=== PATIENT | male | born 1945 | race Caucasian/White ===

== ENCOUNTER 2018-10-12 05:16 | Inpatient (IN) ==
--- NOTE | 2018-10-12 05:33 | ED ---
HPI General Chief complaint: GI Bleed Stated complaint: H/A since 11p,elevated BP,BRBPR Time Seen by Provider: 10/12/18 05:33 Source: patient Mode of arrival: ambulatory Limitations: no limitations History of Present Illness HPI Narrative: 73-year-old male presents to the emergency department for evaluation of red blood per rectum. Patient denies previous history of rectal bleeding. Patient notes that patient has past dark red blood without stool and not noted only with wiping with toilet paper. Patient also complains of abdominal pain with nausea no vomiting. No report of shortness of breath near syncope syncope or dizziness. Has experienced some weakness. Patient does take aspirin 81 mg does not report NSAID use. No report of frequent alcohol use or liver disease. No increased bruising. Takes no blood thinning agents other than aspirin. Patient has had no fever or chills. Patient denies any injury or trauma. Patient denies history of hemorrhoids. MD complaint: Reports gross hematochezia Onset (ago): day(s) (1) Pain Consistency: intermittent Severity: moderate Relieving factors: none Exacerbating factors: none Context: Reports history of GI bleed; Denies liver disease, hemorrhoids, swallowed FB, rectal trauma, alcohol abuse, known esophageal varices, medication /supplement use, foreign travel, unusual food, anticoagulant use and near syncope Associated symptoms: Reports abdominal pain, nausea and weakness; Denies vomiting, epistaxis, fever, chills, headaches, loss of appetite, malaise, easy bruising, rash, other bleeding, shortness of breath and syncope Treatments Prior to Arrival: Reports none Related Data Home Medications Medication Instructions Recorded Confirmed B-complex with vitamin C [Super B 2 tab PO DAILY 10/12/18 10/12/18 Complex-Vitamin C] Vitamin D3 25 mcg PO DAILY 10/12/18 10/12/18 aspirin [Aspir-Low] 81 mg PO DAILY 10/12/18 10/12/18 atorvastatin 10 mg PO DAILY 10/12/18 10/12/18 carboxymethylcellulose sodium 1 % LEFT EYE DAILY 10/12/18 10/12/18 [Refresh Liquigel] finasteride 5 mg PO DAILY 10/12/18 10/12/18 latanoprost 1 drp OPHTHALMIC (EYE) QPM 10/12/18 10/12/18 losartan 50 mg PO DAILY 10/12/18 10/12/18 tamsulosin 0.4 cap PO DAILY 10/12/18 10/12/18 venlafaxine 75 mg PO TID 10/12/18 10/12/18 Allergies Allergy/AdvReac Type Severity Reaction Status Date / Time No Known Allergies Allergy Verified 10/12/18 05:53 Review of Systems ROS: all other systems reviewed are negative PMFSH Medical History Medical History BPH (benign prostatic hyperplasia) (Acute) Depression (Acute) High cholesterol (Acute) Hypertension (Acute) Surgical History Surgical History History of vasectomy (Acute) Social History Social History Substance History: No History of Abuse Second Hand Smoke Exposure: Yes Smoking Status: Current every day smoker Tobacco Type: Cigarettes Cigarettes Per Day: 10 Years Smoked: 50 Pack-Years: 25.00 How Often Do You Have a Drink Containing Alcohol: Never Recent Travel in [facility] within the Last 8 Weeks: No Recent Out of Country Travel within the Last 8 Weeks: No Exam Narrative Exam Narrative: GENERAL: Well-nourished, well-developed patient. SKIN: Focused skin assessment warm/dry. HEAD: Normocephalic. EYES: No scleral icterus. No injection or drainage. NECK: Supple, trachea midline. No JVD or lymphadenopathy. CARDIOVASCULAR: Regular rate and rhythm without murmurs, gallops, or rubs. RESPIRATORY: Breath sounds equal bilaterally. No accessory muscle use. GASTROINTESTINAL: Abdomen soft, non-tender, nondistended. Rectal exam: Normal sphincter tone maroon stool/blood on exam glove; no palpable mass MUSCULOSKELETAL: No cyanosis, or edema. BACK: Nontender without obvious deformity. No CVA tenderness. Course Initial Documented Vital Signs Temperature 97.8 F 10/12/18 05:20 Pulse Rate 103 H 10/12/18 05:20 Respiratory Rate 18 10/12/18 05:20 Blood Pressure 137/90 10/12/18 05:20 Pulse Oximetry 96 10/12/18 05:20 Last Documented Vital Signs Temperature 98.4 F 10/19/18 00:00 Pulse Rate 67 10/19/18 04:00 Respiratory Rate 20 10/19/18 04:00 Blood Pressure 94/60 L 10/19/18 01:07 Pulse Oximetry 95 10/19/18 01:07 Medical Decision Making MDM Narrative Medical decision making narrative: Patient presents with dark red blood per rectum maroon colored is briskly Hemoccult positive IV access obtained specimens collected and sent for resulting patient given Protonix infusion. Patient identified to have hemoglobin 13 BUN and creatinine ratio less than 30 BUN is 19 with creatinine of 1.30. Patient has received Protonix and remains on Protonix infusion Patient's case discussed with medicine service for admission. [facility] MD for admission aware of CT abdomen pelvis pending. Medical Screen Exam Complete: Yes Emergency Medical Condition: Yes Differential Diagnosis Differential Diagnosis: Upper GI bleed lower GI bleed diverticulitis colitis anemia Medical Records Medical records reviewed: Yes I reviewed the patient's medical records. Lab Data Result diagrams: 10/16/18 06:50 10/12/18 06:00 Lab Results 10/12/18 10/12/18 10/12/18 Range/Units 06:00 06:00 06:00 CBC w Diff Auto diff final WBC 9.1 (4.0-11.0) th/mm3 RBC 4.95 (4.50-5.90) mil/mm3 Hgb 15.3 (13.0-17.0) gm/dL Hct 45.4 (39.0-51.0) % MCV 91.8 (80.0-100.0) fL MCH 30.9 (27.0-34.0) pg MCHC 33.6 (32.0-36.0) % RDW 13.1 (11.6-17.2) % Plt Count 239 (150-450) th/mm3 MPV 8.3 (7.0-11.0) fL Neut % (Auto) 71.8 H (16.0-70.0) % Lymph % (Auto) 18.9 (9.0-44.0) % [place] % (Auto) 6.0 (0.0-8.0) % Eos % (Auto) 1.4 (0.0-4.0) % Baso % (Auto) 1.9 (0.0-2.0) % Neut # (Auto) 6.6 (1.8-7.7) th/mm3 Lymph # (Auto) 1.7 (1.0-4.8) th/mm3 [place] # (Auto) 0.5 (0.0-0.9) th/mm3 Eos # (Auto) 0.1 (0.0-0.4) th/mm3 Baso # (Auto) 0.2 (0.0-0.2) th/mm3 WBC Differential . Differential Comment . PT 11.5 (9.8-11.6) sec INR 1.1 Ratio APTT 29.1 (23.4-31.7) sec Sodium 137 (136-145) meq/L Potassium 3.9 (3.5-5.1) meq/L Chloride 106 (98-107) meq/L Carbon Dioxide 24.6 (21.0-32.0) meq/L Anion Gap 6 (5-15) meq/L BUN 19 H (7-18) mg/dL Creatinine 1.30 (0.60-1.30) mg/dL Estimated GFR 54 L (>89) mL/min Random Glucose 119 H (74-106) mg/dL Calcium 8.6 (8.5-10.1) mg/dL Magnesium 2.2 (1.5-2.5) mg/dL Total Bilirubin 0.5 (0.2-1.0) mg/dL AST 18 (15-37) U/L ALT 17 (12-78) U/L Alkaline Phosphatase 45 (45-117) U/L Ammonia (11-32) mcmol/L Total Protein 7.1 (6.4-8.2) g/dL Albumin 3.8 (3.4-5.0) g/dL Blood Type Antibody Screen MTS Gel Crossmatch 10/12/18 10/12/18 10/12/18 Range/Units 06:00 06:00 14:34 CBC w Diff WBC (4.0-11.0) th/mm3 RBC (4.50-5.90) mil/mm3 Hgb 14.5 (13.0-17.0) gm/dL Hct 45.0 (39.0-51.0) % MCV (80.0-100.0) fL MCH (27.0-34.0) pg MCHC (32.0-36.0) % RDW (11.6-17.2) % Plt Count (150-450) th/mm3 MPV (7.0-11.0) fL Neut % (Auto) (16.0-70.0) % Lymph % (Auto) (9.0-44.0) % [place] % (Auto) (0.0-8.0) % Eos % (Auto) (0.0-4.0) % Baso % (Auto) (0.0-2.0) % Neut # (Auto) (1.8-7.7) th/mm3 Lymph # (Auto) (1.0-4.8) th/mm3 [place] # (Auto) (0.0-0.9) th/mm3 Eos # (Auto) (0.0-0.4) th/mm3 Baso # (Auto) (0.0-0.2) th/mm3 WBC Differential Differential Comment PT (9.8-11.6) sec INR Ratio APTT (23.4-31.7) sec Sodium (136-145) meq/L Potassium (3.5-5.1) meq/L Chloride (98-107) meq/L Carbon Dioxide (21.0-32.0) meq/L Anion Gap (5-15) meq/L BUN (7-18) mg/dL Creatinine (0.60-1.30) mg/dL Estimated GFR (>89) mL/min Random Glucose (74-106) mg/dL Calcium (8.5-10.1) mg/dL Magnesium (1.5-2.5) mg/dL Total Bilirubin (0.2-1.0) mg/dL AST (15-37) U/L ALT (12-78) U/L Alkaline Phosphatase (45-117) U/L Ammonia 10 L (11-32) mcmol/L Total Protein (6.4-8.2) g/dL Albumin (3.4-5.0) g/dL Blood Type A Positive Antibody Screen Negative MTS Gel Crossmatch 10/12/18 10/13/18 10/13/18 Range/Units 19:00 02:20 06:09 CBC w Diff WBC 7.6 (4.0-11.0) th/mm3 RBC 4.40 L (4.50-5.90) mil/mm3 Hgb 14.4 13.4 13.7 (13.0-17.0) gm/dL Hct 43.0 40.7 40.8 (39.0-51.0) % MCV 92.6 (80.0-100.0) fL MCH 31.1 (27.0-34.0) pg MCHC 33.6 (32.0-36.0) % RDW 13.7 (11.6-17.2) % Plt Count 201 (150-450) th/mm3 MPV 7.9 (7.0-11.0) fL Neut % (Auto) 65.9 (16.0-70.0) % Lymph % (Auto) 24.2 (9.0-44.0) % [place] % (Auto) 7.6 (0.0-8.0) % Eos % (Auto) 1.7 (0.0-4.0) % Baso % (Auto) 0.6 (0.0-2.0) % Neut # (Auto) 5.0 (1.8-7.7) th/mm3 Lymph # (Auto) 1.8 (1.0-4.8) th/mm3 [place] # (Auto) 0.6 (0.0-0.9) th/mm3 Eos # (Auto) 0.1 (0.0-0.4) th/mm3 Baso # (Auto) 0.0 (0.0-0.2) th/mm3 WBC Differential . Differential Comment Auto diff final PT (9.8-11.6) sec INR Ratio APTT (23.4-31.7) sec Sodium (136-145) meq/L Potassium (3.5-5.1) meq/L Chloride (98-107) meq/L Carbon Dioxide (21.0-32.0) meq/L Anion Gap (5-15) meq/L BUN (7-18) mg/dL Creatinine (0.60-1.30) mg/dL Estimated GFR (>89) mL/min Random Glucose (74-106) mg/dL Calcium (8.5-10.1) mg/dL Magnesium (1.5-2.5) mg/dL Total Bilirubin (0.2-1.0) mg/dL AST (15-37) U/L ALT (12-78) U/L Alkaline Phosphatase (45-117) U/L Ammonia (11-32) mcmol/L Total Protein (6.4-8.2) g/dL Albumin (3.4-5.0) g/dL Blood Type Antibody Screen MTS Gel Crossmatch 10/14/18 10/15/18 10/16/18 Range/Units 11:39 06:10 06:50 CBC w Diff WBC 8.1 8.1 7.9 (4.0-11.0) th/mm3 RBC 4.23 L 3.71 L 4.13 L (4.50-5.90) mil/mm3 Hgb 13.2 11.7 L 13.0 (13.0-17.0) gm/dL Hct 39.8 35.1 L 38.5 L (39.0-51.0) % MCV 94.0 94.5 93.2 (80.0-100.0) fL MCH 31.2 31.4 31.4 (27.0-34.0) pg MCHC 33.2 33.2 33.7 (32.0-36.0) % RDW 14.0 13.9 14.0 (11.6-17.2) % Plt Count 202 181 174 (150-450) th/mm3 MPV 8.1 8.8 8.6 (7.0-11.0) fL Neut % (Auto) 64.7 65.4 (16.0-70.0) % Lymph % (Auto) 25.5 24.1 (9.0-44.0) % [place] % (Auto) 8.1 H 7.9 (0.0-8.0) % Eos % (Auto) 1.2 2.1 (0.0-4.0) % Baso % (Auto) 0.5 0.5 (0.0-2.0) % Neut # (Auto) 5.3 5.2 (1.8-7.7) th/mm3 Lymph # (Auto) 2.1 1.9 (1.0-4.8) th/mm3 [place] # (Auto) 0.7 0.6 (0.0-0.9) th/mm3 Eos # (Auto) 0.1 0.2 (0.0-0.4) th/mm3 Baso # (Auto) 0.0 0.0 (0.0-0.2) th/mm3 WBC Differential . . Differential Comment Auto diff final Auto diff final PT (9.8-11.6) sec INR Ratio APTT (23.4-31.7) sec Sodium (136-145) meq/L Potassium (3.5-5.1) meq/L Chloride (98-107) meq/L Carbon Dioxide (21.0-32.0) meq/L Anion Gap (5-15) meq/L BUN (7-18) mg/dL Creatinine (0.60-1.30) mg/dL Estimated GFR (>89) mL/min Random Glucose (74-106) mg/dL Calcium (8.5-10.1) mg/dL Magnesium (1.5-2.5) mg/dL Total Bilirubin (0.2-1.0) mg/dL AST (15-37) U/L ALT (12-78) U/L Alkaline Phosphatase (45-117) U/L Ammonia (11-32) mcmol/L Total Protein (6.4-8.2) g/dL Albumin (3.4-5.0) g/dL Blood Type Antibody Screen MTS Gel Crossmatch 10/17/18 Range/Units 17:02 CBC w Diff WBC (4.0-11.0) th/mm3 RBC (4.50-5.90) mil/mm3 Hgb (13.0-17.0) gm/dL Hct (39.0-51.0) % MCV (80.0-100.0) fL MCH (27.0-34.0) pg MCHC (32.0-36.0) % RDW (11.6-17.2) % Plt Count (150-450) th/mm3 MPV (7.0-11.0) fL Neut % (Auto) (16.0-70.0) % Lymph % (Auto) (9.0-44.0) % [place] % (Auto) (0.0-8.0) % Eos % (Auto) (0.0-4.0) % Baso % (Auto) (0.0-2.0) % Neut # (Auto) (1.8-7.7) th/mm3 Lymph # (Auto) (1.0-4.8) th/mm3 [place] # (Auto) (0.0-0.9) th/mm3 Eos # (Auto) (0.0-0.4) th/mm3 Baso # (Auto) (0.0-0.2) th/mm3 WBC Differential Differential Comment PT (9.8-11.6) sec INR Ratio APTT (23.4-31.7) sec Sodium (136-145) meq/L Potassium (3.5-5.1) meq/L Chloride (98-107) meq/L Carbon Dioxide (21.0-32.0) meq/L Anion Gap (5-15) meq/L BUN (7-18) mg/dL Creatinine (0.60-1.30) mg/dL Estimated GFR (>89) mL/min Random Glucose (74-106) mg/dL Calcium (8.5-10.1) mg/dL Magnesium (1.5-2.5) mg/dL Total Bilirubin (0.2-1.0) mg/dL AST (15-37) U/L ALT (12-78) U/L Alkaline Phosphatase (45-117) U/L Ammonia (11-32) mcmol/L Total Protein (6.4-8.2) g/dL Albumin (3.4-5.0) g/dL Blood Type A Positive Antibody Screen Negative MTS Gel Crossmatch See Detail Imaging Data Radiologist's impression: Abdomen/Pelvis CT 10/12/18 06:16 CONCLUSION: 1. No acute finding is identified to explain the clinical symptoms. 2. 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 The aneurysms have increased in size, as above. 3. Nonacute findings include hepatic steatosis and stable small hiatal hernia. Aortography 10/18/18 00:00 CONCLUSION: Uncomplicated endograft placement for abdominal aortic aneurysm. Discharge Plan Discharge Disposition Patient Disposition: ED Admit(ED Internal Use Only) Discharge Condition Condition: Stable Discharge Order Discharge Orders: ED Use Only Admit Order (Routine); Ordered 10/12/18 Ordered By: Tammy Esquivel Discharge Details Diagnosis: GI bleed Physicians Team ED Provider: Tammy Esquivel Primary Care Provider: Abelardo Darden V Attending Provider: Arya Barton Other Providers: Maximiliano Verduzco V ; Klarissa Hobson ; [employer] Status ED Status: Left Department Discharge Information Discharge Date/Time: 10/12/18 09:00
[2018-10-12] MEDS ORDERED: Pantoprazole Inj 80 MG in Sodium Chlor 0.9% Inj 35 ML IV.SIG ONE (05:48)
[2018-10-12] MEDS ORDERED: Sodium Chlor 0.9% Inj 500 ML IV.SIG SCH (06:00)
[2018-10-12] MEDS ORDERED: Pantoprazole Inj 80 MG in Sodium Chlor 0.9% Inj 100 ML IV.CONT SCH (06:00)
[2018-10-12 06:08] LABS: Baso # (Auto) 0.2 th/mm3 (0.0-0.2); Baso % (Auto) 1.9 % (0.0-2.0); Eos # (Auto) 0.1 th/mm3 (0.0-0.4); Eos % (Auto) 1.4 % (0.0-4.0); Hematocrit 45.4 % (39.0-51.0); Hemoglobin 15.3 gm/dL (13.0-17.0); Lymph # (Auto) 1.7 th/mm3 (1.0-4.8); Lymph % (Auto) 18.9 % (9.0-44.0); Mean Corpuscular HGB Conc 33.6 % (32.0-36.0); Mean Corpuscular Hemoglobin 30.9 pg (27.0-34.0); Mean Corpuscular Volume 91.8 fL (80.0-100.0); Mean Platelet Volume 8.3 fL (7.0-11.0); Mono # (Auto) 0.5 th/mm3 (0.0-0.9); Neut # (Auto) 6.6 th/mm3 (1.8-7.7); Neut % (Auto) 71.8 % (16.0-70.0); Platelet Count 239 th/mm3 (150-450); Red Blood Count 4.95 mil/mm3 (4.50-5.90); Red Cell Distribution Width 13.1 % (11.6-17.2); White Blood Count 9.1 th/mm3 (4.0-11.0)
[2018-10-12 06:24] LABS: Chloride 106 meq/L (98-107); Potassium 3.9 meq/L (3.5-5.1); Sodium 137 meq/L (136-145)
[2018-10-12 06:28] LABS: Activated Partial Thrombo Time 29.1 sec (23.4-31.7); Albumin 3.8 g/dL (3.4-5.0); Anion Gap 6 meq/L (5-15); Blood Urea Nitrogen 19 mg/dL (7-18); Calcium 8.6 mg/dL (8.5-10.1); Carbon Dioxide 24.6 meq/L (21.0-32.0); Glucose,Random 119 mg/dL (74-106); INR 1.1 Ratio; Magnesium 2.2 mg/dL (1.5-2.5); Prothrombin Time 11.5 sec (9.8-11.6)
[2018-10-12 06:31] LABS: Alanine Aminotransferase 17 U/L (12-78); Aspartate Aminotransferase 18 U/L (15-37); Glomerular Filtration Rate 54 mL/min (>89)
[2018-10-12 06:33] LABS: Total Protein 7.1 g/dL (6.4-8.2)
[2018-10-12 06:34] LABS: Alkaline Phosphatase 45 U/L (45-117)
[2018-10-12] MEDS: Sod Chloride 0.9% Inj 1,000 ML IV.CONT SCH ×2 (06:35→14:30)
[2018-10-12] MEDS ORDERED: Acetaminophen 325 MG Tablet PO PRN (06:53)
[2018-10-12] MEDS ORDERED: Bisacodyl 10 MG Supp RECTAL PRN (06:53)
--- NOTE | 2018-10-12 07:17 | CT ---
EXAM DATE: 10/12/2018 7:03 AM EST AGE/SEX: 73 years / Male INDICATIONS: Blood in stool. Left lower quadrant abdominal pain. CLINICAL DATA: This is the patient's initial encounter. Patient reports that signs and symptoms have been present for 1 day and indicates a pain score of 3/10. MEDICAL/SURGICAL HISTORY: Hypertension. None. ORAL CONTRAST: No oral contrast ingested. RADIATION DOSE: 20.88 CTDI (mGy) COMPARISON: [facility], CT ABDOMEN & PELVIS W CONTRAST, 03/18/2015. . TECHNIQUE: Multiple contiguous axial images were obtained through the abdomen and pelvis following b olus infusion of 100 ml Omnipaque 350 (iohexol) nonionic water-soluble contrast as a single exam do se. No oral contrast ingested. Using automated exposure control and adjustment of the mA and/or kV a ccording to patient size, radiation dose was kept as low as reasonably achievable to obtain optimal d iagnostic quality images. DICOM format image data is available electronically for review and compari son. FINDINGS: Lower chest: There is a calcified granuloma in the left lung base. No acute abnormality is present. Hepatobiliary: Liver appearance indicates steatosis. No focal liver lesion is identified but there is fat sparing within segment 4. No calcified gallstones are present. Kidneys: No hydronephrosis, stone, or mass. There is an incidental 8 mm low-density lesion in the rig ht mid kidney that is too small to characterize. Adrenal Glands: Within normal limits. Spleen: Within normal limits. Pancreas: Within normal limits. Vascular: There is severe atherosclerotic disease. The distal descending thoracic aorta is tortuous a nd aneurysmal measuring up to 4.1 cm, compared to 3.2 cm previously. The abdominal aorta is ectatic a nd aneurysmal with the largest aneurysmal segment in the infrarenal aspect at the level of the AUTUMN or igin measuring up to 5.0 x 4.1 cm compared to 3.7 x 3.5 cm previously. 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 Bowel/Mesentery: The stomach and small bowel demonstrate no acute abnormality. There is a stable smal l hiatal hernia. No acute colon abnormality is seen. There is no free intraperitoneal air or fluid. A ppendix and terminal ileum have a normal appearance. There is sigmoid diverticulosis. Abdominal Wall: No hernia is visualized. Retroperitoneum: No lymphadenopathy. Bladder: No wall thickening or mass. Reproductive: Within normal limits. Inguinal: No lymphadenopathy or hernia. Musculoskeletal: No acute osseous abnormality is identified. There is multilevel degenerative disc di sease in the lumbar spine. CONCLUSION: 1. No acute finding is identified to explain the clinical symptoms. 2. 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 The aneurysms have increased in size, as above. 3. Nonacute findings include hepatic steatosis and stable small hiatal hernia. Electronically signed by: Qamar Evans MD Board Certified Radiologist 10/12/2018 7:16 AM EST
[2018-10-12] MEDS: Pantoprazole Inj 80 MG in Sodium Chlor 0.9% Inj 100 ML IV.CONT SCH ×2 (08:05→16:53)
--- NOTE | 2018-10-12 13:35 | P.HPIM ---
History of Present Illness Primary Care Physician: Abelardo Darden MD Chief Complaint: Blood in stool History of Present Illness: 73-year-old male with known history of hypertension, hyperlipidemia, history of GI bleed, benign prostatic hypertrophy who presented to the hospital for evaluation of bloody stool. Patient states that his normal state of health until yesterday when he had a bowel movement noticed right red blood in his stool. He denies any drops in the toilet or any dark colored stool. He states that he had 4 more episodes throughout the day so he came to the hospital for evaluation. Patient had workup done in the emergency department his hemoglobin was found to be 15.3. Because of his presenting symptoms it was recommended by the ER physician the patient be observed in the hospital for further evaluation and management. Patient indicates that he was in the hospital previously for the same symptoms. Reviewed medical records and patient was in here on 2014 in which he did undergo endoscopy/colonoscopy by Dr. Scott, at that time patient was found to have polyps in the transverse colon as well as diverticulosis. Patient was discharged after that, patient states that he not had any outpatient follow-up since then. Patient denies any other symptoms to include abdominal pain, nausea , vomiting, dark colored stool, fever, chills. Review of Systems Review of Systems: all other systems reviewed are negative Gastrointestinal: Reports hematochezia [facility] Medical History Medical History BPH (benign prostatic hyperplasia) (Acute) Depression (Acute) High cholesterol (Acute) Hypertension (Acute) Surgical History Surgical History History of vasectomy (Acute) Social History Social History Substance History: No History of Abuse Second Hand Smoke Exposure: No Smoking Status: Current every day smoker Tobacco Type: Cigarettes Cigarettes Per Day: 10 Years Smoked: 50 Pack-Years: 25.00 How Often Do You Have a Drink Containing Alcohol: Monthly or less Recent Travel in [facility] within the Last 8 Weeks: No Recent Out of Country Travel within the Last 8 Weeks: No Immunization History Tetanus Immunization: Unsure Medications and Allergies Allergies Allergy/AdvReac Type Severity Reaction Status Date / Time No Known Allergies Allergy Verified 10/12/18 05:53 Home Medications Medication Instructions Recorded Confirmed Type B-complex with vitamin C [Super B 2 tab PO DAILY 10/12/18 10/12/18 History Complex-Vitamin C] Vitamin D3 25 mcg PO DAILY 10/12/18 10/12/18 History aspirin [Aspir-Low] 81 mg PO DAILY 10/12/18 10/12/18 History atorvastatin 10 mg PO DAILY 10/12/18 10/12/18 History carboxymethylcellulose sodium 1 % LEFT EYE DAILY 10/12/18 10/12/18 History [Refresh Liquigel] finasteride 5 mg PO DAILY 10/12/18 10/12/18 History latanoprost 1 drp OPHTHALMIC (EYE) QPM 10/12/18 10/12/18 History losartan 50 mg PO DAILY 10/12/18 10/12/18 History tamsulosin 0.4 cap PO DAILY 10/12/18 10/12/18 History venlafaxine 75 mg PO TID 10/12/18 10/12/18 History Active Medications: Active Medications Acetaminophen (Tylenol) 650 mg PO Q4H PRN PRN Reason: Temp > 100.4 Al Hydroxide/Mg Hydroxide (Milk Of Magnesia Liq) 30 ml PO Q12H PRN PRN Reason: Mild Constipation Bisacodyl (Dulcolax Supp) 10 mg RECTAL DAILY PRN PRN Reason: SEVERE CONSITIPATION Sodium Chloride (Ns Inj) 1,000 mls @ 125 mls/hr IV.CONT .Q8H [facility] Last Admin: 10/12/18 06:35 Dose: 125 mls/hr Pantoprazole Sodium 80 mg/ (Sodium Chloride) 100 mls @ 10 mls/hr IV.CONT Q10H [facility] Last Admin: 10/12/18 08:05 Dose: 10 mls/hr Lactulose (Lactulose Liq) 30 ml PO DAILY PRN PRN Reason: SEVERE CONSITIPATION Ondansetron HCl (Zofran Inj) 4 mg IV.PUSH Q6H PRN PRN Reason: NAUSEA OR VOMITING Sennosides (Senokot) 17.2 mg PO Q12H PRN PRN Reason: Moderate Constipation Sodium Chloride (Ns Flush) 2 ml IV.FLUSH PRN PRN PRN Reason: FLUSH AFTER USING IV ACCESS Sodium Chloride (Ns Flush) 2 ml IV.FLUSH BID [facility] Last Admin: 10/12/18 09:20 Dose: Not Given Sodium Chloride (Ns Flush) 2 ml IV.FLUSH PRN PRN PRN Reason: FLUSH AFTER USING IV ACCESS Physical Exam Vital signs: Last Vital Signs Temp 97.2 F L 10/12/18 10:05 Pulse 88 10/12/18 10:05 Resp 16 10/12/18 10:05 BP 157/86 H 10/12/18 10:05 Pulse Ox 96 10/12/18 10:05 Intake & Output 10/10/18 10/11/18 10/12/18 10/13/18 06:59 06:59 06:59 06:59 Intake Total 535 / 535 Balance 535 / 535 Weight 102.7 kg 99.9 kg Narrative: GENERAL: Well-developed, well-nourished, in no acute distress. alert and orientated HEENT: Head is normocephalic without any lesions or masses noted. Facial features are symmetric. Eyes: Pupils equal round reactive to light. Extraocular muscles are intact. Conjunctivae were clear. Oropharyngeal: Pharynx without any erythema edema. Tongue is midline without deviation. Buccal mucosa is moist without any masses or lesions NECK: Supple without any masses. Trachea midline no deviation. No JVD, no bruits are appreciated CARDIAC: Regular rhythm, regular rate. S1/S2 are heard. No murmurs gallops or rubs. LUNGS: Clear to auscultation bilaterally. No wheeze, rhonchi or rales. No use of accessory muscles on inspiration or expiration. ABDOMEN: Soft, nontender. Nondistended. Bowel sounds heard in all 4 quadrants. No organomegaly or masses. Negative rebound, negative guarding EXTREMITIES: No edema, pulses are equal bilaterally. No cyanosis or clubbing NEUROLOGY: Mood and affect appear appropriate. Cranial nerves II through XII grossly intact. Muscle strength 5/5 in upper and lower extremities bilaterally. Deep tendon reflexes are 2+ in upper and lower extremities bilaterally. Results Labs CBC & Chem 7: 10/12/18 14:34 10/12/18 06:00 Imaging Impressions Abdomen/Pelvis CT 10/12/18 06:16 CONCLUSION: 1. No acute finding is identified to explain the clinical symptoms. 2. 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 The aneurysms have increased in size, as above. 3. Nonacute findings include hepatic steatosis and stable small hiatal hernia. Caprini VTE Risk Assessment Caprini VTE Risk Assessment: Moderate/High Risk (score >= 2) Caprini Risk Assessment Model: Point Value = 1 Point Value = 2 Point Value = 3 Point Value = 5 Age 41-60 Minor surgery BMI > 25 kg/m2 Swollen legs Varicose veins or History of unexplained or recurrent spontaneous Oral contraceptives or hormone replacement Sepsis (< 1 month) Serious lung disease, including pneumonia (< 1 month) Abnormal pulmonary function Acute myocardial infarction Congestive heart failure (< 1 month) History of inflammatory bowel disease Medical patient at bed rest Age 61-74 Arthroscopic surgery Major open surgery (> 45 min) Laparoscopic surgery (> 45 min) Malignancy Confined to bed (> 72 hours) Immobilizing plaster cast Central venous access Age >= 75 History of VTE Family history of VTE Factor V Leiden Prothrombin [id number] Lupus anticoagulant Anticardiolipin antibodies Elevated serum homocysteine Heparin-induced thrombocytopenia Other congenital or acquired thrombophilia Stroke (< 1 month) Elective arthroplasty Hip, pelvis, or leg fracture Acute spinal cord injury (< 1 month) Prophylaxis Regimen: Total Risk Factor Score Risk Level Prophylaxis Regimen 0-1 Low Early ambulation 2 Moderate Order ONE of the following: *Sequential Compression Device (SCD) *Heparin 5000 units SQ BID 3-4 Higher Order ONE of the following medications: *Heparin 5000 units SQ TID *Enoxaparin/Lovenox 40 mg SQ daily (WT < 150 kg, CrCl > 30 mL/min) *Enoxaparin/Lovenox 30 mg SQ daily (WT < 150 kg, CrCl > 10-29 mL/min) *Enoxaparin/Lovenox 30 mg SQ BID (WT < 150 kg, CrCl > 30 mL/min) AND/OR *Sequential Compression Device (SCD) 5 or more Highest Order ONE of the following medications: *Heparin 5000 units SQ TID (Preferred with Epidurals) *Enoxaparin/Lovenox 40 mg SQ daily (WT < 150 kg, CrCl > 30 mL/min) *Enoxaparin/Lovenox 30 mg SQ daily (WT < 150 kg, CrCl > 10-29 mL/min) *Enoxaparin/Lovenox 30 mg SQ BID (WT < 150 kg, CrCl > 30 mL/min) AND *Sequential Compression Device (SCD) Assessment and Plan Plan Hematochezia Patient presented with 1 day history of 4 episodes of hematochezia Patient does have history of colonoscopy done 3 years ago with transverse colon polyps and diverticulosis. Both of which could be a reason for his hematochezia Initially patient hemoglobin 15.3, continue monitor hemoglobin hematocrit every 6 hours Transfuse if hemoglobin below 8.0 We will maintain patient with a clear liquid diet at this time, n.p.o. at midnight GI consulted for further recommendations. Patient will likely need at least colonoscopy. Will defer colon prep to GI physician Continue Protonix IV Abdominal aneurysms, increasing in size Consult cardiovascular surgery for recommendations Patient will require clearance in order to pursue any endoscopy procedures Hypertension, hyperlipidemia, benign prostatic hypertrophy Continue home medications We will hold daily aspirin at this time DVT prevention Sequential compression devices Avoid chemical prophylaxis secondary to hematochezia H&P: Quality VTE Deep Vein Thrombosis/Pulmonary Embolism Present on Admission: No
[2018-10-12] MEDS: Venlafaxine XR 75 MG Capsule PO SCH (14:31)
[2018-10-12 14:46] LABS: Hemoglobin 14.5 gm/dL (13.0-17.0)
--- NOTE | 2018-10-12 17:36 | MB ---
cc: Irwin Guillory MD, Kashya Duncan, Jeffrey D MD Zulfiqar, Hassan MD DATE: 10/12/2018 This is a patient of Dr. Uriel Stack. REASON FOR CONSULTATION: Rectal bleeding. HISTORY OF PRESENT ILLNESS: Mr. English is a 73-year-old gentleman with 1-day history of painless rectal bleeding. He says he had 4 bloody bowel movements yesterday, and so far today, he has had additional 4 bowel movements. His hemoglobin has dropped from 15.3 to 14.5. On presentation, he had a CT scan of the abdomen and pelvis done, which shows that he has a descending thoracic aorta aneurysm, which has increased from 3.2 cm to 4.1 cm, and then he has an infrarenal aortic aneurysm which has increased from 3.7 to 5.0 cm. The patient states that he has these followed at the [facility]. Last ultrasound was about 6 months ago through the [place] system. He is having minimal left lower quadrant discomfort. Otherwise, no symptoms. REVIEW OF SYSTEMS: Hematochezia with minimal left lower quadrant discomfort. No nausea, vomiting. No weight loss. PAST MEDICAL HISTORY: Benign prostatic hypertrophy, aortic aneurysm, depression, elevated cholesterol, elevated blood pressure. PAST SURGICAL HISTORY: Vasectomy, EGD and colonoscopy in 2015 which revealed colon polyps as well as diverticulosis. SOCIAL HISTORY: The patient is a smoker, 10 cigarettes daily. No alcohol use reported consistently. MEDICINES ON ADMISSION: 1. B complex. 2. Aspirin. 3. Atorvastatin. 4. Finasteride. 5. Losartan. 6. Tamsulosin. 7. Venlafaxine. PHYSICAL EXAMINATION: GENERAL: Well-nourished man in no apparent distress. VITAL SIGNS: Stable. HEAD AND NECK: Anicteric sclerae. LUNGS: Bilateral air entry with rales. ABDOMEN: Soft and minimal tenderness in the left lower quadrant. Bowel sounds are present. CENTRAL NERVOUS SYSTEM: Nonfocal. RECTAL: Deferred at this time. LABORATORY DATA: Hemoglobin of 14.5, INR is 1.1. Creatinine 1.30. CT of the abdomen and pelvis findings as mentioned above. IMPRESSION: Gastrointestinal bleeding, possible diverticular bleed. RECOMMENDATIONS: Currently, the patient's hemoglobin is stable. Ideally, we would scope him tomorrow and prep him today, but the patient's aneurysm has increased in size by about 2 cm. I am concerned about this and would recommend transfer to the [facility] and cardiothoracic evaluation as soon as possible. Once the patient is cleared from their standpoint, we can proceed with an emergent EGD and colonoscopy. The patient needs to be typed and screened for 2 units of blood. Clear liquid diet at this time. These findings have been discussed with the patient's primary care physician, Dr. Uriel Stack, as well. Dr. Rivero will follow at the [facility]. MD ONUR Guardado/shravan , 04:41 PM , 04:49 PM
--- NOTE | 2018-10-12 18:53 | P.PNVS ---
Subjective Subjective/Hospital Course: 73-year-old male with lower GI bleed most likely diverticular in nature. CT of abdomen and pelvis reveals abdominal aortic aneurysm which has grown since the last exam few years ago At this point patient has a 5.2 cm saccular abdominal aortic aneurysm and infrarenal aorta. Saccular aneurysms are notorious for rupture and have usually a fairly thin wall. Therefore this patient needs to be transferred to [facility], be worked up for GI bleed and depending on those findings either undergo endovascular abdominal aortic aneurysm repair at this admission or in the near future. It should be noted that patient will need to be heparinized for endovascular stenting so unless the bleeding is controlled we can do that. On the other hand I would be hard pressed to wait too long on this aneurysm because risk of ruptured here is fairly high considering the morphology of this lesion. Full consult to follow Thanks J Objective Vital Signs / I&O: Vital Signs 10/12/18 05:20 10/12/18 06:00 10/12/18 08:10 Temperature 97.8 F Pulse Rate 103 H 91 H Respiratory Rate 18 16 Blood Pressure 137/90 144/94 H Pulse Oximetry 96 96 97 10/12/18 09:00 10/12/18 10:05 10/12/18 14:41 Temperature 97.2 F L 97.2 F L Pulse Rate 88 85 Respiratory Rate 16 16 Blood Pressure 157/86 H 133/84 Pulse Oximetry 96 96 96 10/12/18 18:48 Temperature 98.4 F Pulse Rate 93 H Respiratory Rate 20 Blood Pressure 140/87 Pulse Oximetry 95 Intake & Output 10/11/18 10/12/18 10/12/18 18:59 06:59 18:59 Intake Total 535 / 535 100 / 100 Output Total 300 / 300 Balance 535 / 535 -200 / -200 Weight 102.7 kg 99.9 kg Intake: IV 535 / 535 100 / 100 Protonix Inj 80 MG In NS Inj 100 / 100 100 ML @ 10 mls/hr IV.CONT Q10H [facility] Rx#:[id number] NS Inj 1,000 ML @ 125 mls/hr IV 0 / 0 .CONT .Q8H [facility] Rx#:[id number] Protonix Inj 80 MG In NS Inj 35 35 / 35 ML @ 420 mls/hr IV.SIG BOLUS ONE Rx#:[id number] NS Inj 500 ML @ 1000 mls/hr IV. 500 / 500 SIG BOLUS [facility]OT[facility] Rx#:[id number] Output: Stool 300 / 300 Other: Date of Last Bowel Movement 10/12/18 Weight On Admission 99.9 kg Laboratory Results - last 24 hr 10/12/18 10/12/18 10/12/18 06:00 06:00 06:00 CBC w Diff Auto diff final WBC 9.1 RBC 4.95 Hgb 15.3 Hct 45.4 MCV 91.8 MCH 30.9 MCHC 33.6 RDW 13.1 Plt Count 239 MPV 8.3 Neut % (Auto) 71.8 H Lymph % (Auto) 18.9 Ellis % (Auto) 6.0 Eos % (Auto) 1.4 Baso % (Auto) 1.9 Neut # (Auto) 6.6 Lymph # (Auto) 1.7 Ellis # (Auto) 0.5 Eos # (Auto) 0.1 Baso # (Auto) 0.2 WBC Differential . Differential Comment . PT 11.5 INR 1.1 APTT 29.1 Sodium 137 Potassium 3.9 Chloride 106 Carbon Dioxide 24.6 Anion Gap 6 BUN 19 H Creatinine 1.30 Estimated GFR 54 L Random Glucose 119 H Calcium 8.6 Magnesium 2.2 Total Bilirubin 0.5 AST 18 ALT 17 Alkaline Phosphatase 45 Ammonia Total Protein 7.1 Albumin 3.8 Blood Type Antibody Screen 10/12/18 10/12/18 10/12/18 06:00 06:00 14:34 CBC w Diff WBC RBC Hgb 14.5 Hct 45.0 MCV MCH MCHC RDW Plt Count MPV Neut % (Auto) Lymph % (Auto) Ellis % (Auto) Eos % (Auto) Baso % (Auto) Neut # (Auto) Lymph # (Auto) Ellis # (Auto) Eos # (Auto) Baso # (Auto) WBC Differential Differential Comment PT INR APTT Sodium Potassium Chloride Carbon Dioxide Anion Gap BUN Creatinine Estimated GFR Random Glucose Calcium Magnesium Total Bilirubin AST ALT Alkaline Phosphatase Ammonia 10 L Total Protein Albumin Blood Type A Positive Antibody Screen Negative Impressions Abdomen/Pelvis CT 10/12/18 06:16 CONCLUSION: 1. No acute finding is identified to explain the clinical symptoms. 2. 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 The aneurysms have increased in size, as above. 3. Nonacute findings include hepatic steatosis and stable small hiatal hernia.
[2018-10-12 19:37] LABS: Hemoglobin 14.4 gm/dL (13.0-17.0)
[2018-10-13 02:41] LABS: Hematocrit 40.7 % (39.0-51.0); Hemoglobin 13.4 gm/dL (13.0-17.0)
[2018-10-13] MEDS: Sod Chloride 0.9% Inj 1,000 ML IV.CONT SCH ×3 (04:17→14:00)
[2018-10-13] MEDS: Pantoprazole Inj 80 MG in Sodium Chlor 0.9% Inj 100 ML IV.CONT SCH ×2 (04:17→14:32)
[2018-10-13 06:21] LABS: Baso % (Auto) 0.6 % (0.0-2.0); Eos # (Auto) 0.1 th/mm3 (0.0-0.4); Eos % (Auto) 1.7 % (0.0-4.0); Hematocrit 40.8 % (39.0-51.0); Hemoglobin 13.7 gm/dL (13.0-17.0); Lymph # (Auto) 1.8 th/mm3 (1.0-4.8); Lymph % (Auto) 24.2 % (9.0-44.0); Mean Corpuscular HGB Conc 33.6 % (32.0-36.0); Mean Corpuscular Hemoglobin 31.1 pg (27.0-34.0); Mean Corpuscular Volume 92.6 fL (80.0-100.0); Mean Platelet Volume 7.9 fL (7.0-11.0); Mono # (Auto) 0.6 th/mm3 (0.0-0.9); Mono % (Auto) 7.6 % (0.0-8.0); Neut % (Auto) 65.9 % (16.0-70.0); Platelet Count 201 th/mm3 (150-450); Red Cell Distribution Width 13.7 % (11.6-17.2); White Blood Count 7.6 th/mm3 (4.0-11.0)
[2018-10-13] MEDS: Finasteride 5 MG Tablet PO SCH (08:35)
[2018-10-13] MEDS: Venlafaxine XR 75 MG Capsule PO SCH (08:35)
[2018-10-13] MEDS: Metoprolol Tartrate 50 MG Tablet PO SCH ×2 (13:47→20:20)
--- NOTE | 2018-10-13 14:37 | P.PNVS ---
Subjective Subjective/Hospital Course: 73-year-old male with lower GI bleed most likely diverticular in nature. CT of abdomen and pelvis reveals abdominal aortic aneurysm which has grown since the last exam few years ago At this point patient has a 5.2 cm saccular abdominal aortic aneurysm and infrarenal aorta. Saccular aneurysms are notorious for rupture and have usually a fairly thin wall. Therefore this patient needs to be transferred to [facility], be worked up for GI bleed and depending on those findings either undergo endovascular abdominal aortic aneurysm repair at this admission or in the near future. It should be noted that patient will need to be heparinized for endovascular stenting so unless the bleeding is controlled we can do that. On the other hand I would be hard pressed to wait too long on this aneurysm because risk of ruptured here is fairly high considering the morphology of this lesion. Full consult to follow Thanks J 10/13/2018 Patient cleared from vascular point and needs scope, followed by endovascular AAA repair at this admission. Full consult has been dictated Spoke to Dr. Stevenson and we will engage GI Objective Vital Signs / I&O: Vital Signs 10/12/18 14:41 10/12/18 18:48 10/12/18 20:00 Temperature 97.2 F L 98.4 F 97.8 F Pulse Rate 85 93 H 90 Respiratory Rate 16 20 20 Blood Pressure 133/84 140/87 143/87 H Pulse Oximetry 96 95 94 L 10/13/18 00:00 10/13/18 05:54 10/13/18 07:46 Temperature 97.1 F L 98.5 F 97.7 F Pulse Rate 94 H 89 85 Respiratory Rate 20 20 20 Blood Pressure 132/88 129/59 L 150/88 H Pulse Oximetry 94 L 96 95 10/13/18 11:52 Temperature 98.0 F Pulse Rate 82 Respiratory Rate 18 Blood Pressure 148/86 H Pulse Oximetry 96 Intake & Output 10/12/18 10/13/18 10/13/18 18:59 06:59 18:59 Intake Total 100 / 100 1100 / 1100 100 / 100 Output Total 300 / 300 Balance -200 / -200 1100 / 1100 100 / 100 Weight 99.9 kg 104.6 kg Intake: IV 100 / 100 1100 / 1100 100 / 100 Protonix Inj 80 MG In NS Inj 100 / 100 100 / 100 100 / 100 100 ML @ 10 mls/hr IV.CONT Q10H [facility] Rx#:[id number] NS Inj 1,000 ML @ 125 mls/hr IV 0 / 0 1000 / 1000 .CONT .Q8H [facility] Rx#:[id number] Output: Stool 300 / 300 Other: # Voids 1 Date of Last Bowel Movement 10/12/18 10/13/18 10/13/18 # Bowel Movements 1 Weight On Admission 99.9 kg Laboratory Results - last 24 hr 10/12/18 10/12/18 10/13/18 14:34 19:00 02:20 WBC RBC Hgb 14.5 14.4 13.4 Hct 45.0 43.0 40.7 MCV MCH MCHC RDW Plt Count MPV Neut % (Auto) Lymph % (Auto) [place] % (Auto) Eos % (Auto) Baso % (Auto) Neut # (Auto) Lymph # (Auto) [place] # (Auto) Eos # (Auto) Baso # (Auto) WBC Differential Differential Comment 10/13/18 06:09 WBC 7.6 RBC 4.40 L Hgb 13.7 Hct 40.8 MCV 92.6 MCH 31.1 MCHC 33.6 RDW 13.7 Plt Count 201 MPV 7.9 Neut % (Auto) 65.9 Lymph % (Auto) 24.2 [place] % (Auto) 7.6 Eos % (Auto) 1.7 Baso % (Auto) 0.6 Neut # (Auto) 5.0 Lymph # (Auto) 1.8 [place] # (Auto) 0.6 Eos # (Auto) 0.1 Baso # (Auto) 0.0 WBC Differential . Differential Comment Auto diff final Impressions Abdomen/Pelvis CT 10/12/18 06:16 CONCLUSION: 1. No acute finding is identified to explain the clinical symptoms. 2. 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 The aneurysms have increased in size, as above. 3. Nonacute findings include hepatic steatosis and stable small hiatal hernia.
--- NOTE | 2018-10-13 15:21 | MB ---
cc: Klarissa Hobson MD DATE: 10/12/2018 REASON FOR CONSULTATION: Abdominal aortic aneurysm. HISTORY OF PRESENT DISEASE: This pleasant 73-year-old gentleman with a medical history of GI bleed in the past and various other issues presents to the hospital with maroon-colored and bloody stool. The patient refers the stool as dark colored and then became more bright red. The patient was admitted to [facility] and in the workup found to have a 5.2 cm saccular abdominal aortic aneurysm in the infrarenal position. Patient apparently in the past had a CT which showed a smaller size aneurysm; hence the consultation. PAST MEDICAL HISTORY: Hypertension, hyperlipidemia, BPH, and a known abdominal aortic aneurysm about 3.2 cm at the last evaluation. The patient also had apparently previous bleed and is known to have diverticulosis. SOCIAL HISTORY: The patient smokes about half-pack a day, smoked for 50 years. Drinks very rarely. MEDICATIONS: Can be found in the records. PHYSICAL EXAMINATION: GENERAL: Reveals a 73-year-old gentleman; awake, alert, oriented, normocephalic. No trauma to the head. Pupils are equal and reactive. Extraocular muscles intact. NECK: Bilateral carotid pulses. No bruits. CHEST: Bilateral breath sounds. HEART: Regular rate and rhythm. No murmurs. ABDOMEN: Soft. No rebound, no guarding, no masses. No abdominal tenderness noted in either left or right lower quadrant. BACK: Normal. EXTREMITIES: The patient has proximal and distal are normal pulses. No vascular deficit. IMPRESSION AND RECOMMENDATIONS: This patient most likely has a diverticular bleed and he will require endoscopy for the same. Depending on that, we will have to decide which way to go with the abdominal aortic aneurysm. Considering the rapid growth of this and saccular nature, these are very prone to rupture early and the wall was quite thin. Therefore, I recommend endovascular repair at this admission. The caveat is that for the repair, the patient needs to be heparinized, so with active bleed, he might need embolization of some of the mesenteric branches to start with. On the other hand, if the bleeding has stopped, then no need for the same and we can proceed with aneurysm repair. The patient at this point is cleared for scope from a cardiovascular point and based on the scope findings, we will decide further care. Thank you very much for referral. MD Beatris Lopez , 02:41 PM , 02:49 PM
--- NOTE | 2018-10-13 17:43 | P.PNGI ---
Subjective Interval history: Patient laying supine in bed Bedside RN reports patient having dark brown to black tarry loose stools <Light,Kaylee - Last Filed: 10/13/18 17:34> Physical Exam Vital signs: Vital Signs 10/12/18 18:48 10/12/18 20:00 10/13/18 00:00 Temperature 98.4 F 97.8 F 97.1 F L Pulse Rate 93 H 90 94 H Respiratory Rate 20 20 20 Blood Pressure 140/87 143/87 H 132/88 Pulse Oximetry 95 94 L 94 L 10/13/18 05:54 10/13/18 07:46 10/13/18 11:52 Temperature 98.5 F 97.7 F 98.0 F Pulse Rate 89 85 82 Respiratory Rate 20 20 18 Blood Pressure 129/59 L 150/88 H 148/86 H Pulse Oximetry 96 95 96 10/13/18 16:00 Temperature 98.5 F Pulse Rate 82 Respiratory Rate 20 Blood Pressure 140/85 Pulse Oximetry 95 Intake & Output 10/12/18 10/13/18 10/13/18 18:59 06:59 18:59 Intake Total 100 / 100 1100 / 1100 100 / 100 Output Total 300 / 300 Balance -200 / -200 1100 / 1100 100 / 100 Weight 99.9 kg 104.6 kg Intake: IV 100 / 100 1100 / 1100 100 / 100 Protonix Inj 80 MG In NS Inj 100 / 100 100 / 100 100 / 100 100 ML @ 10 mls/hr IV.CONT Q10H PIOTR Rx#:[id number] NS Inj 1,000 ML @ 125 mls/hr IV 0 / 0 1000 / 1000 .CONT .Q8H PIOTR Rx#:[id number] Output: Stool 300 / 300 Other: # Voids 1 Date of Last Bowel Movement 10/12/18 10/13/18 10/13/18 # Bowel Movements 1 Weight On Admission 99.9 kg - Constitutional no acute distress - Routine HEENT Exam Head: Present: normocephalic - Routine Respiratory Exam Present: CTA bilaterally. Absent: accessory muscle use - Routine Cardiovascular Exam Present: RRR, S1, S2 - Routine Abdominal Exam Present: soft, normoactive bowel sounds. Absent: distended, guarding, firm - Routine Extremities Exam Present: pulses intact. Absent: edema - Routine Skin Exam Present: dry, warm. Absent: pallor - Routine Neurological Exam Present: alert, oriented X3 <Kaylee Light - Last Filed: 10/13/18 17:34> Vital signs: Vital Signs 10/15/18 16:00 10/15/18 20:00 10/16/18 00:00 Temperature 96.6 F L 98.2 F 98.6 F Pulse Rate 70 64 83 Respiratory Rate 14 20 18 Blood Pressure 142/87 H 149/87 H 132/89 Pulse Oximetry 98 97 96 10/16/18 03:45 10/16/18 04:00 10/16/18 07:30 Temperature 98.1 F 98.5 F Pulse Rate 65 62 64 Respiratory Rate 18 20 Blood Pressure 131/84 119/78 Pulse Oximetry 96 95 10/16/18 08:00 10/16/18 08:12 10/16/18 11:00 Temperature 97.5 F L Pulse Rate 78 68 Respiratory Rate 20 Blood Pressure 127/80 Pulse Oximetry 95 98 Intake & Output 10/15/18 10/16/18 10/16/18 18:59 06:59 18:59 Intake Total 1000 / 1000 1100 / 1100 1000 / 1000 Balance 1000 / 1000 1100 / 1100 1000 / 1000 Weight 103.8 kg Intake: IV 1000 / 1000 1100 / 1100 1000 / 1000 Protonix Inj 80 MG In NS Inj 100 / 100 100 ML @ 10 mls/hr IV.CONT Q10H IPOTR Rx#:[id number] NS Inj 1,000 ML @ 125 mls/hr IV 1000 / 1000 1000 / 1000 1000 / 1000 .CONT .Q8H PIOTR Rx#:[id number] Other: # Voids 2 1 # Urine Diapers 2 Date of Last Bowel Movement 10/14/18 10/14/18 <Uday Rivero A - Last Filed: 10/16/18 13:25> Results - Labs CBC & Chem 7: 10/13/18 06:09 10/12/18 06:00 Laboratory Results - last 24 hr 10/12/18 10/13/18 10/13/18 19:00 02:20 06:09 WBC 7.6 RBC 4.40 L Hgb 14.4 13.4 13.7 Hct 43.0 40.7 40.8 MCV 92.6 MCH 31.1 MCHC 33.6 RDW 13.7 Plt Count 201 MPV 7.9 Neut % (Auto) 65.9 Lymph % (Auto) 24.2 Jefferson % (Auto) 7.6 Eos % (Auto) 1.7 Baso % (Auto) 0.6 Neut # (Auto) 5.0 Lymph # (Auto) 1.8 Jefferson # (Auto) 0.6 Eos # (Auto) 0.1 Baso # (Auto) 0.0 WBC Differential . Differential Comment Auto diff final <Kaylee Light - Last Filed: 10/13/18 17:34> - Labs CBC & Chem 7: 10/16/18 06:50 10/12/18 06:00 Laboratory Results - last 24 hr 10/16/18 06:50 WBC 7.9 RBC 4.13 L Hgb 13.0 Hct 38.5 L MCV 93.2 MCH 31.4 MCHC 33.7 RDW 14.0 Plt Count 174 MPV 8.6 Neut % (Auto) 65.4 Lymph % (Auto) 24.1 Jefferson % (Auto) 7.9 Eos % (Auto) 2.1 Baso % (Auto) 0.5 Neut # (Auto) 5.2 Lymph # (Auto) 1.9 Jefferson # (Auto) 0.6 Eos # (Auto) 0.2 Baso # (Auto) 0.0 WBC Differential . Differential Comment Auto diff final <Uday Rivero - Last Filed: 10/16/18 13:25> Assessment and Plan (1) Melena Status: Acute Code(s): K92.1 - Melena (2) GI bleed Status: Acute Code(s): K92.2 - Gastrointestinal hemorrhage, unspecified - Plan GI bleed Melena Patient transferred from [facility] for vascular evaluation and GI intervention Hemoglobin 13.7 hematocrit 40.8 INR 1.1 total bilirubin 0.5 AST 18 ALT 17 alk phos 45 ammonia 10 10/12/2018 CT abdomen and pelvis revealed the following:. No acute finding is identified to explain the clinical symptoms. 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 The aneurysms have increased in size, as above. Nonacute findings include hepatic steatosis and stable small hiatal hernia. Patient has been cleared from cardiovascular standpoint for endoscopic procedures as per Dr. Klarissa Hobson Plan -Clear liquid diet -N.p.o. after midnight -Obtain consent for EGD and colonoscopy -GoLYTELY prep -Monitor hemoglobin and hematocrit -Monitor for bleeding -Antiemetic as per attending -Pantoprazole drip -Supportive care -Further recommendations to follow This patient has been seen by myself and Dr. Rivero and this note is written on his behalf - Attending Attestation Dr. Rivero <Kaylee Light - Last Filed: 10/13/18 17:34> (1) Melena Status: Acute Code(s): K92.1 - Melena (2) GI bleed Status: Acute Code(s): K92.2 - Gastrointestinal hemorrhage, unspecified - Attending Attestation Agree with above assessment and plan. Further recommendations to follow. <Uday Rivero - Last Filed: 10/16/18 13:25>
[2018-10-13] MEDS ORDERED: PEG 3350/E-Lyte Soln 4000 ML Bottle PO ONE (18:00)
[2018-10-13] MEDS ORDERED: Chlorhexidine Gluconate 2% 1 Pack (2 Cloths) TOPICAL ONE (18:44)
[2018-10-13] MEDS ORDERED: Metoprolol Tartrate 25 MG Tablet PO ONE (18:44)
[2018-10-13] MEDS ORDERED: Sodium Chlor 0.9% Inj 500 ML IV.SIG ONE (19:00)
--- NOTE | 2018-10-13 19:40 | P.PNIM ---
Subjective Interval history: 73-year-old gentleman admitted due to gross rectal bleeding, workup found enlarging abdominal saccular aneurysm, patient was transferred for further vascular surgical evaluation. Patient seen and examined, still having some blood in his stools, denies any abdominal pain, no lightheadedness dizziness, no shortness of breath, he denies any cardiac history, states he had a stress test in full cardiac workup about 2 or 3 years ago when he awoke with sudden epigastric chest pain, he has not had any episodes of angina dyspnea on exertion or lower extremity edema symptoms since. Physical Exam Vital signs: Last Vital Signs Temp 98.5 F 10/13/18 16:00 Pulse 82 10/13/18 16:00 Resp 20 10/13/18 16:00 BP 140/85 10/13/18 16:00 Pulse Ox 95 10/13/18 16:00 Intake & Output 10/11/18 10/12/18 10/13/18 10/14/18 06:59 06:59 06:59 06:59 Intake Total 535 / 535 1200 / 1200 1100 / 1100 Output Total 300 / 300 Balance 535 / 535 900 / 900 1100 / 1100 Weight 102.7 kg 104.6 kg Narrative: Well-developed well-nourished pleasant 73-year-old white male Awake alert oriented no acute distress Heart S1-S2 regular Lungs clear no wheeze no rhonchi Abdomen soft nondistended positive bowel sounds no tenderness Extremities no clubbing cyanosis no edema no calf tenderness Results Labs CBC & Chem 7: 10/13/18 06:09 10/12/18 06:00 Assessment and Plan (1) Melena: Code(s): K92.1 - Melena Status: Acute (2) GI bleed: Code(s): K92.2 - Gastrointestinal hemorrhage, unspecified Status: Acute Plan ACUTE RED BLOOD PER RECTUM/ LGIB - likely diverticular bleed - persists, hg mild drop, hemodynamically stable, cont ppi, gi consult AAA- saccular infrarenal with interval expansion w very high risk of rupture, vascular consult appreciated, case discussed, for inpatient repair oncerectal bleed is evaluated, as need for anticoagulation perioperative endovascular repair will complicate bleeding risks, however can be managed with embolization of diverticular branches if necessary - cont close bp control add bb decrease hr, close monitoring on tele HTN - cont losartan, add metoprolol, bp and hr control DYSLIPIDEMIA - statin BPH flomax DEPRESSION venlafaxine dvt prophylasis - scd dispo - plan for necessary urgent inpatient endovascular repair aneurysm mon or tues pending gi eval and clinical course. Progress Note: Quality VTE Deep Vein Thrombosis/Pulmonary Embolism Present on Admission: No _ (1) GI bleed Qualifiers: GI bleed type/associated pathology: Gastritis type:
[2018-10-14] MEDS: Pantoprazole Inj 80 MG in Sodium Chlor 0.9% Inj 100 ML IV.CONT SCH ×2 (00:18→11:07)
[2018-10-14] MEDS: Sod Chloride 0.9% Inj 1,000 ML IV.CONT SCH ×2 (00:22→18:04)
[2018-10-14] MEDS: Finasteride 5 MG Tablet PO SCH (08:21)
[2018-10-14] MEDS: Metoprolol Tartrate 50 MG Tablet PO SCH ×2 (08:21→21:04)
[2018-10-14] MEDS: Venlafaxine XR 75 MG Capsule PO SCH (08:21)
[2018-10-14 11:55] LABS: Hematocrit 39.8 % (39.0-51.0); Hemoglobin 13.2 gm/dL (13.0-17.0); Mean Corpuscular HGB Conc 33.2 % (32.0-36.0); Mean Corpuscular Hemoglobin 31.2 pg (27.0-34.0); Mean Platelet Volume 8.1 fL (7.0-11.0); Platelet Count 202 th/mm3 (150-450); Red Blood Count 4.23 mil/mm3 (4.50-5.90); White Blood Count 8.1 th/mm3 (4.0-11.0)
--- NOTE | 2018-10-14 13:57 | P.PNVS ---
Subjective Subjective/Hospital Course: 73-year-old male with lower GI bleed most likely diverticular in nature. CT of abdomen and pelvis reveals abdominal aortic aneurysm which has grown since the last exam few years ago At this point patient has a 5.2 cm saccular abdominal aortic aneurysm and infrarenal aorta. Saccular aneurysms are notorious for rupture and have usually a fairly thin wall. Therefore this patient needs to be transferred to [facility], be worked up for GI bleed and depending on those findings either undergo endovascular abdominal aortic aneurysm repair at this admission or in the near future. It should be noted that patient will need to be heparinized for endovascular stenting so unless the bleeding is controlled we can do that. On the other hand I would be hard pressed to wait too long on this aneurysm because risk of ruptured here is fairly high considering the morphology of this lesion. Full consult to follow Thanks Earl 10/13/2018 Patient cleared from vascular point and needs scope, followed by endovascular AAA repair at this admission. Full consult has been dictated Spoke to Dr. Stevenson and we will engage GI URI 10/14/2018 Patient remains hemodynamically stable and hemoglobin is stable so based on that probably the lower GI bleeding has ceased. Agree with GI workup and planned endoscopy. Once all done if bleeding has ceased patient will be scheduled for endovascular abdominal aortic aneurysm repair at this admission. Continue to follow Objective Vital Signs / I&O: Vital Signs 10/13/18 16:00 10/13/18 20:00 10/14/18 00:00 Temperature 98.5 F 97.9 F 98.7 F Pulse Rate 82 74 68 Respiratory Rate 20 20 20 Blood Pressure 140/85 140/65 119/63 Pulse Oximetry 95 96 96 10/14/18 04:00 10/14/18 08:00 10/14/18 11:57 Temperature 97.7 F 97.7 F 98.5 F Pulse Rate 72 70 68 Respiratory Rate 20 20 20 Blood Pressure 122/70 118/75 125/78 Pulse Oximetry 95 95 94 L Intake & Output 10/13/18 10/14/18 10/14/18 18:59 06:59 18:59 Intake Total 1100 / 1100 2500 / 2500 100 / 100 Balance 1100 / 1100 2500 / 2500 100 / 100 Weight 101 kg Intake: IV 1100 / 1100 1100 / 1100 100 / 100 Protonix Inj 80 MG In NS Inj 100 / 100 100 / 100 100 / 100 100 ML @ 10 mls/hr IV.CONT Q10H PIOTR Rx#:[id number] NS Inj 1,000 ML @ 125 mls/hr IV 1000 / 1000 1000 / 1000 .CONT .Q8H PIOTR Rx#:[id number] Oral 1400 / 1400 Other: Date of Last Bowel Movement 10/13/18 10/13/18 10/14/18 Laboratory Results - last 24 hr 10/14/18 11:39 WBC 8.1 RBC 4.23 L Hgb 13.2 Hct 39.8 MCV 94.0 MCH 31.2 MCHC 33.2 RDW 14.0 Plt Count 202 MPV 8.1
--- NOTE | 2018-10-14 15:25 | P.PNIM ---
Subjective Interval history: 73-year-old gentleman admitted due to gross rectal bleeding, workup found enlarging abdominal saccular aneurysm, patient was transferred for further vascular surgical evaluation. Patient continued to have rectal bleeding , and egd and colonoscopy are planned pt seen and evaluated, doing better but still w bleeding, no sob, no nv, no abd pain Physical Exam Vital signs: Last Vital Signs Temp 98.5 F 10/14/18 11:57 Pulse 68 10/14/18 11:57 Resp 20 10/14/18 11:57 BP 125/78 10/14/18 11:57 Pulse Ox 94 L 10/14/18 11:57 Intake & Output 10/12/18 10/13/18 10/14/18 10/15/18 06:59 06:59 06:59 06:59 Intake Total 535 / 535 1200 / 1200 3600 / 3600 100 / 100 Output Total 300 / 300 Balance 535 / 535 900 / 900 3600 / 3600 100 / 100 Weight 102.7 kg 104.6 kg 101 kg wdwn 73yo w m aaox3 nad pleasant heart s1s2 reg lungs clear no wrr abd soft nondt pos bs ext no edema, no calf tenderness Results Labs CBC & Chem 7: 10/14/18 11:39 10/12/18 06:00 Assessment and Plan (1) Melena: Code(s): K92.1 - Melena Status: Acute (2) GI bleed: Code(s): K92.2 - Gastrointestinal hemorrhage, unspecified Status: Acute Plan ACUTE RED BLOOD PER RECTUM/ LGIB - likely diverticular bleed - persists, hg mild drop, hemodynamically stable, cont ppi, for egd, colonoscopy, fu hh AAA- saccular infrarenal with interval expansion w very high risk of rupture, vascular consult appreciated, case discussed, for inpatient repair oncerectal bleed is evaluated, as need for anticoagulation perioperative endovascular repair will complicate bleeding risks, however can be managed with embolization of diverticular branches if necessary - cont close bp control add bb decrease hr, close monitoring on tele HTN - cont losartan, add metoprolol, bp and hr control DYSLIPIDEMIA - statin BPH flomax DEPRESSION venlafaxine dvt prophylasis - scd dispo - plan for necessary urgent inpatient endovascular repair aneurysm mon or pending gi eval and clinical course. Progress Note: Quality VTE Deep Vein Thrombosis/Pulmonary Embolism Present on Admission: No _ (1) GI bleed Qualifiers: GI bleed type/associated pathology: Gastritis type:
--- NOTE | 2018-10-14 15:45 | GIPROC ---
[facility] [address] [facility]. [facility], [address] EGD PROCEDURE REPORT EXAM DATE: 10/14/2018 PATIENT NAME: Petros Mcdonald MR #: [id number] BIRTHDATE: 1945 ATTENDING: Karla Williamson MD ORDER #: [id number] ADJUNCT MATHEMATICS INSTRUCTOR: Omaira Santiago and Carmen Dong STATUS: inpatient INDICATIONS: The patient is a 73 yr old male here for an EGD due to gi bleeding PROCEDURE PERFORMED: EGD w/ biopsy MEDICATIONS: Per Anesthesia and None. TOPICAL ANESTHETIC: none CONSENT: The patient understands the risks and benefits of the procedure and understands that these risks include, but are not limited to: sedation, allergic reaction, infection, perforation and/or bleeding. Alternative means of evaluation and treatment include, among others: physical exam, x-rays, and/or surgical intervention. The patient elects to proceed with this endoscopic procedure. medical equipment was checked for proper function. Hand hygiene and appropriate measures for infection prevention was taken. After the risks, benefits and alternatives of the procedure were thoroughly explained, Informed consent was verified, confirmed and timeout was successfully executed by the treatment team. The patient was anesthetized with topical anesthesia and the EC-3490Li (Pedi C) endoscope was introduced through the mouth and advanced to the second portion of the duodenum. Retroflexed views revealed a hiatal hernia The gastroscope was then slowly withdrawn and removed. Duodenitis second portion-biopsy gastritis antrum-biopsy Schatzki's ring. ADVERSE EVENTS: There were no complications. IMPRESSIONS: 1. Duodenitis second portion-biopsy gastritis antrum-biopsy Schatzki's ring 2. Retroflexed views revealed a hiatal hernia RECOMMENDATIONS: 1. Await biopsy results. Biopsy results will not be ready for 7-10 days. If you don't hear from us in two weeks, call our office for biopsy results. 2. Anti-reflux regimen 3. Continue PPI 4. Avoid NSAIDS PATIENT CONDITION: stable DISPOSITION: Inpatient REPEAT EXAM: Return 3 months EGD Karla Williamson MD eSigned: Karla Williamson MD 10/14/2018 3:45 PM cc: PATIENT NAME: Petros Mcdonald MR#: [id number]
--- NOTE | 2018-10-14 15:49 | GIPROC ---
[facility] [address] [facility]. [facility], [address] COLONOSCOPY PROCEDURE REPORT EXAM DATE: 10/14/2018 PATIENT NAME: Petros Mcdonald MR #: [id number] BIRTHDATE: 1945 ENDOSCOPIST: Karla Williamson MD ORDER #: [id number] MILL REPRESENTATIVE: Omaira Santiago and Carmen Dong STATUS: inpatient INDICATIONS: The patient is a 73 yr old male here for a colonoscopy due to anemia, gi bleeding PROCEDURE PERFORMED: control of bleeding using clip MEDICATIONS: Per Anesthesia and None. PREP QUALITY: fair PREP TYPE:Other: ESTIMATED BLOOD LOSS: None CONSENT: The patient understands the risks and benefits of the procedure and understands that these risks include, but are not limited to: sedation, allergic reaction, infection, perforation and/or bleeding. Alternative means of evaluation and treatment include, among others: physical exam, x-rays, and/or surgical intervention. The patient elects to proceed with this endoscopic procedure. medical equipment was checked for proper function. Hand hygiene and appropriate measures for infection prevention was taken. After the risks, benefits and alternatives of the procedure were thoroughly explained, Informed consent was verified, confirmed and timeout was successfully executed by the treatment team. A digital exam revealed external hemorrhoids The Pentax EC-3490Li endoscope was introduced through the anus and advanced to the cecum, which was identified by both the appendix and ileocecal valve. The instrument was then slowly withdrawn as the colon was fully examined. COLON FINDINGS: Semisolid stool in right colon agressive washing severe diverticulosis in sigmoid,descending fresh blood in sigmoid around one diverticulum-1 clip applied , no other source seen. Retroflexed views revealed internal hemorrhoids The scope was then completely withdrawn from the patient and the procedure terminated. PROCEDURE WITHDRAWAL TIME:6minutes ADVERSE EVENTS: There were no complications. IMPRESSIONS: 1. Semisolid stool in right colon agressive washing severe diverticulosis in sigmoid,descending fresh blood in sigmoid around one diverticulum-1 clip applied , no other source seen 2. Retroflexed views revealed internal hemorrhoids 3. Revealed external hemorrhoids RECOMMENDATIONS: 1. Benefiber 2 tsp daily 2. Resume diet if active bleeding -bleeding scan, angiogram RECALL: Return 3 months Colonoscopy Karla Williamson MD eSigned: Karla Williamson MD 10/14/2018 3:48 PM cc:
--- NOTE | 2018-10-14 18:37 | ECG ---
Date Performed: 10/14/2018 Time Performed: 09:00:37 PTAGE: 73 years EKG: Sinus rhythm MARKED LEFT AXIS DEVIATION Since the previous tracing, no significant change noted ABNORMAL ECG PREVIOUS TRACING : 03/19/2015 22.49 DOCTOR: Augustine Abraham Interpretating Date/Time 10/14/2018 18:36:24
[2018-10-15] MEDS: Pantoprazole Inj 80 MG in Sodium Chlor 0.9% Inj 100 ML IV.CONT SCH ×2 (01:02→06:39)
[2018-10-15] MEDS: Sod Chloride 0.9% Inj 1,000 ML IV.CONT SCH ×3 (01:03→19:40)
--- NOTE | 2018-10-15 06:12 | P.PNVS ---
Subjective Subjective/Hospital Course: 73-year-old male with lower GI bleed most likely diverticular in nature. CT of abdomen and pelvis reveals abdominal aortic aneurysm which has grown since the last exam few years ago At this point patient has a 5.2 cm saccular abdominal aortic aneurysm and infrarenal aorta. Saccular aneurysms are notorious for rupture and have usually a fairly thin wall. Therefore this patient needs to be [facility], be worked up for GI bleed and depending on those findings either undergo endovascular abdominal aortic aneurysm repair at this admission or in the near future. It should be noted that patient will need to be heparinized for endovascular stenting so unless the bleeding is controlled we can do that. On the other hand I would be hard pressed to wait too long on this aneurysm because risk of ruptured here is fairly high considering the morphology of this lesion. Full consult to follow Thanks Earl 10/13/2018 Patient cleared from vascular point and needs scope, followed by endovascular AAA repair at this admission. Full consult has been dictated Spoke to Dr. Stevenson and we will engage GI URI 10/14/2018 Patient remains hemodynamically stable and hemoglobin is stable so based on that probably the lower GI bleeding has ceased. Agree with GI workup and planned endoscopy. Once all done if bleeding has ceased patient will be scheduled for endovascular abdominal aortic aneurysm repair at this admission. Continue to follow 10/15/2018 Patient lower GI bleeding and saccular abdominal aortic aneurysm I reviewed the results of upper and lower endoscopy and patient indeed has diverticular bleed based on severe diverticulosis of the sigmoid colon The most common cause of rectal bleeding or hemorrhoids and the most common cause of massive rectal bleeding are diverticula in the left colon followed by AVM malformations in the right colon In this particular case diverticular bleed is self-contained and in the next few days should be completely abolished. In this particular situation as noted in my original consult patient needs to be heparinized for the endovascular procedure and this clearly increases the risk of repeated hemorrhage, but on the other hand this is a rapidly progressing saccular aneurysm which is associated with a high risk of rupture. Therefore risks benefit ratio has to be assessed and while I am aware of increased risk of hemorrhage I am very reluctant to discharge the patient with rapidly expanding aneurysm. This is clearly one of those clinical decisions the takes an account experience, knowledge and requires mature clinical judgment. Based on the above we plan to do endovascular abdominal aortic aneurysm repair at this admission probably around middle of the week, barring any surprises with bleeding Objective Vital Signs / I&O: Vital Signs 10/14/18 08:00 10/14/18 11:57 10/14/18 15:50 Temperature 97.7 F 98.5 F 97.8 F Pulse Rate 70 68 70 Respiratory Rate 20 20 17 Blood Pressure 118/75 125/78 93/56 L Pulse Oximetry 95 94 L 95 10/14/18 16:00 10/14/18 16:08 10/14/18 16:59 Temperature 97.8 F 97.2 F L Pulse Rate 70 68 74 Respiratory Rate 17 17 20 Blood Pressure 103/62 107/65 131/73 Pulse Oximetry 95 95 97 10/14/18 19:53 10/14/18 20:00 10/15/18 00:51 Temperature 97.8 F 97.7 F Pulse Rate 73 97 H Respiratory Rate 18 20 Blood Pressure 116/66 114/64 Pulse Oximetry 95 95 96 10/15/18 03:51 Temperature 97.8 F Pulse Rate 69 Respiratory Rate 18 Blood Pressure 109/68 Pulse Oximetry 95 Intake & Output 10/14/18 10/14/18 10/15/18 06:59 18:59 06:59 Intake Total 2500 / 2500 600 / 600 1100 / 1100 Balance 2500 / 2500 600 / 600 1100 / 1100 Weight 101 kg Intake: IV 1100 / 1100 100 / 100 1100 / 1100 Protonix Inj 80 MG In NS Inj 100 / 100 100 / 100 100 / 100 100 ML @ 10 mls/hr IV.CONT Q10H PIOTR Rx#:[id number] NS Inj 1,000 ML @ 125 mls/hr IV 1000 / 1000 1000 / 1000 .CONT .Q8H PIOTR Rx#:[id number] Oral 1400 / 1400 Anesthesia Amount 500 / 500 Other: # Voids 3 Date of Last Bowel Movement 10/13/18 10/14/18 10/14/18 Laboratory Results - last 24 hr 10/14/18 11:39 WBC 8.1 RBC 4.23 L Hgb 13.2 Hct 39.8 MCV 94.0 MCH 31.2 MCHC 33.2 RDW 14.0 Plt Count 202 MPV 8.1
[2018-10-15 07:45] LABS: Baso % (Auto) 0.5 % (0.0-2.0); Eos # (Auto) 0.1 th/mm3 (0.0-0.4); Eos % (Auto) 1.2 % (0.0-4.0); Hematocrit 35.1 % (39.0-51.0); Hemoglobin 11.7 gm/dL (13.0-17.0); Lymph # (Auto) 2.1 th/mm3 (1.0-4.8); Lymph % (Auto) 25.5 % (9.0-44.0); Mean Corpuscular HGB Conc 33.2 % (32.0-36.0); Mean Corpuscular Hemoglobin 31.4 pg (27.0-34.0); Mean Corpuscular Volume 94.5 fL (80.0-100.0); Mean Platelet Volume 8.8 fL (7.0-11.0); Mono # (Auto) 0.7 th/mm3 (0.0-0.9); Mono % (Auto) 8.1 % (0.0-8.0); Neut # (Auto) 5.3 th/mm3 (1.8-7.7); Neut % (Auto) 64.7 % (16.0-70.0); Platelet Count 181 th/mm3 (150-450); Red Blood Count 3.71 mil/mm3 (4.50-5.90); Red Cell Distribution Width 13.9 % (11.6-17.2); White Blood Count 8.1 th/mm3 (4.0-11.0)
[2018-10-15] MEDS: Finasteride 5 MG Tablet PO SCH (08:30)
[2018-10-15] MEDS: Metoprolol Tartrate 50 MG Tablet PO SCH ×2 (08:30→21:37)
[2018-10-15] MEDS: Venlafaxine XR 75 MG Capsule PO SCH (08:30)
--- NOTE | 2018-10-15 10:18 | P.PNGI ---
Subjective Interval history: Pt is resting in bed, no bleeding reported. Inquiring about timing of aneurysm repair <Reena Smith - Last Filed: 10/15/18 10:10> Physical Exam Vital signs: Vital Signs 10/14/18 11:57 10/14/18 15:50 10/14/18 16:00 Temperature 98.5 F 97.8 F Pulse Rate 68 70 70 Respiratory Rate 20 17 17 Blood Pressure 125/78 93/56 L 103/62 Pulse Oximetry 94 L 95 95 10/14/18 16:08 10/14/18 16:59 10/14/18 19:53 Temperature 97.8 F 97.2 F L 97.8 F Pulse Rate 68 74 73 Respiratory Rate 17 20 18 Blood Pressure 107/65 131/73 116/66 Pulse Oximetry 95 97 95 10/14/18 20:00 10/15/18 00:51 10/15/18 03:51 Temperature 97.7 F 97.8 F Pulse Rate 97 H 69 Respiratory Rate 20 18 Blood Pressure 114/64 109/68 Pulse Oximetry 95 96 95 10/15/18 07:30 10/15/18 09:31 Temperature 98.6 F Pulse Rate 65 Respiratory Rate 18 Blood Pressure 114/75 Pulse Oximetry 95 95 Intake & Output 10/14/18 10/15/18 10/15/18 18:59 06:59 18:59 Intake Total 600 / 600 1100 / 1100 Balance 600 / 600 1100 / 1100 Intake: IV 100 / 100 1100 / 1100 Protonix Inj 80 MG In NS Inj 100 / 100 100 / 100 100 ML @ 10 mls/hr IV.CONT Q10H PIOTR Rx#:[id number] NS Inj 1,000 ML @ 125 mls/hr IV 1000 / 1000 .CONT .Q8H IPOTR Rx#:[id number] Anesthesia Amount 500 / 500 Other: # Voids 3 Date of Last Bowel Movement 10/14/18 10/14/18 10/14/18 Narrative: Well-developed well-nourished pleasant 73-year-old white male Awake alert oriented no acute distress Heart S1-S2 regular Lungs clear no wheeze no rhonchi Abdomen soft nondistended positive bowel sounds no tenderness Extremities no clubbing cyanosis no edema no calf tenderness <Reena Smith - Last Filed: 10/15/18 10:10> Vital signs: Vital Signs 10/14/18 15:50 10/14/18 16:00 10/14/18 16:08 Temperature 97.8 F 97.8 F Pulse Rate 70 70 68 Respiratory Rate 17 17 17 Blood Pressure 93/56 L 103/62 107/65 Pulse Oximetry 95 95 95 10/14/18 16:59 10/14/18 19:53 10/14/18 20:00 Temperature 97.2 F L 97.8 F Pulse Rate 74 73 Respiratory Rate 20 18 Blood Pressure 131/73 116/66 Pulse Oximetry 97 95 95 10/15/18 00:51 10/15/18 03:51 10/15/18 07:30 Temperature 97.7 F 97.8 F 98.6 F Pulse Rate 97 H 69 65 Respiratory Rate 20 18 18 Blood Pressure 114/64 109/68 114/75 Pulse Oximetry 96 95 95 10/15/18 09:31 10/15/18 11:40 Temperature 97.7 F Pulse Rate 71 Respiratory Rate 14 Blood Pressure 118/78 Pulse Oximetry 95 95 Intake & Output 10/14/18 10/15/18 10/15/18 18:59 06:59 18:59 Intake Total 600 / 600 1100 / 1100 Balance 600 / 600 1100 / 1100 Intake: IV 100 / 100 1100 / 1100 Protonix Inj 80 MG In NS Inj 100 / 100 100 / 100 100 ML @ 10 mls/hr IV.CONT Q10H PIOTR Rx#:[id number] NS Inj 1,000 ML @ 125 mls/hr IV 1000 / 1000 .CONT .Q8H PIOTR Rx#:[id number] Anesthesia Amount 500 / 500 Other: # Voids 3 Date of Last Bowel Movement 10/14/18 10/14/18 10/14/18 <Karla Williamson - Last Filed: 10/15/18 14:36> Results - Labs CBC & Chem 7: 10/15/18 06:10 10/12/18 06:00 Laboratory Results - last 24 hr 10/14/18 10/15/18 11:39 06:10 WBC 8.1 8.1 RBC 4.23 L 3.71 L Hgb 13.2 11.7 L Hct 39.8 35.1 L MCV 94.0 94.5 MCH 31.2 31.4 MCHC 33.2 33.2 RDW 14.0 13.9 Plt Count 202 181 MPV 8.1 8.8 Neut % (Auto) 64.7 Lymph % (Auto) 25.5 [place] % (Auto) 8.1 H Eos % (Auto) 1.2 Baso % (Auto) 0.5 Neut # (Auto) 5.3 Lymph # (Auto) 2.1 [place] # (Auto) 0.7 Eos # (Auto) 0.1 Baso # (Auto) 0.0 WBC Differential . Differential Comment Auto diff final <Reena Smith - Last Filed: 10/15/18 10:10> - Labs CBC & Chem 7: 10/15/18 06:10 10/12/18 06:00 Laboratory Results - last 24 hr 10/15/18 06:10 WBC 8.1 RBC 3.71 L Hgb 11.7 L Hct 35.1 L MCV 94.5 MCH 31.4 MCHC 33.2 RDW 13.9 Plt Count 181 MPV 8.8 Neut % (Auto) 64.7 Lymph % (Auto) 25.5 [place] % (Auto) 8.1 H Eos % (Auto) 1.2 Baso % (Auto) 0.5 Neut # (Auto) 5.3 Lymph # (Auto) 2.1 [place] # (Auto) 0.7 Eos # (Auto) 0.1 Baso # (Auto) 0.0 WBC Differential . Differential Comment Auto diff final <Karla Williamson - Last Filed: 10/15/18 14:36> Assessment and Plan (1) Melena Status: Acute Code(s): K92.1 - Melena (2) GI bleed Status: Acute Code(s): K92.2 - Gastrointestinal hemorrhage, unspecified - Plan GI bleed/anemia- Pt denies any obvious gi bleed hgb today is 11.7, decreased S/P EGD and colonoscopy on 10/14/18 EGD 1. Duodenitis second portion-biopsy gastritis antrum-biopsy Schatzki's ring 2. Retroflexed views revealed a hiatal hernia Colonoscopy 1. Semisolid stool in right colon aggressive washing severe diverticulosis in sigmoid,descending fresh blood in sigmoid around one diverticulum-1 clip applied , no other source seen 2. Retroflexed views revealed internal hemorrhoids 3. Revealed external hemorrhoids 10/12/2018 CT abdomen and pelvis revealed the following:. No acute finding is identified to explain the clinical symptoms. 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 The aneurysms have increased in size Nonacute findings include hepatic steatosis and stable small hiatal hernia. - Aneurysms- Plans for repair this weeks with vascular Dr. Klarissa Hobson Plan - KATLYN -Monitor hemoglobin and hematocrit -Monitor for bleeding - Consider bleeding scan for active bleed - Protonix PO - EGD/colonoscopy in 3 months - GI will sign off -Supportive care This patient has been seen by myself and Dr. Williamson and this note is written on her behalf <Reena Smith - Last Filed: 10/15/18 10:10> (1) Melena Status: Acute Code(s): K92.1 - Melena (2) GI bleed Status: Acute Code(s): K92.2 - Gastrointestinal hemorrhage, unspecified - Attending Attestation agree with above <Karla Williamson - Last Filed: 10/15/18 14:36>
--- NOTE | 2018-10-15 16:08 | P.PNIM ---
Subjective Interval history: 73-year-old gentleman admitted due to gross rectal bleeding, workup found enlarging abdominal saccular aneurysm, patient was transferred for further vascular surgical evaluation. pt seen doing well, s/p egd, colonoscopy, finding diverticular bleed, post clip , states no more bleeding, no pain, no nv Physical Exam Vital signs: Last Vital Signs Temp 97.7 F 10/15/18 11:40 Pulse 71 10/15/18 11:40 Resp 14 10/15/18 11:40 BP 118/78 10/15/18 11:40 Pulse Ox 95 10/15/18 11:40 Intake & Output 10/13/18 10/14/18 10/15/18 10/16/18 06:59 06:59 06:59 06:59 Intake Total 1200 / 1200 3600 / 3600 1700 / 1700 Output Total 300 / 300 Balance 900 / 900 3600 / 3600 1700 / 1700 Weight 104.6 kg 101 kg pleasant wdwn 73 yo m aaox 3 nad heart s1s2 eg lungs clear no wrr abd soft nondt pos bs ext no e/c/c Results Labs CBC & Chem 7: 10/15/18 06:10 10/12/18 06:00 Assessment and Plan Plan ACUTE RED BLOOD PER RECTUM/ LGIB - due to diverticular bleed - hg mild drop 15- 11, remains hemodynamically stable, cont ppi, -egd done w DUOENDITIS, SCHATZKIs RING, s/p bx fu w GI for egd 3 mo, avoid nsaids, continue ppi -colonoscopy done -SEVERE SIGMOID, and DESCENDING colon DIVERTICULOSIS w fresh blood s/p clip, int/ext hemhoids, - cont benefiber 2 tsp daily and fu 3 mo colonoscopy recommended. -if rebleeds will need bleeding scan and +/- arteriogram/embolization AAA- saccular infrarenal with interval expansion 5.o x 4.1 cm, w very high risk of rupture, vascular following, plans inpatient repair once rectal bleed stable, as need for anticoagulation perioperative endovascular repair will complicate bleeding risks, however can be managed with embolization if necessary. - cont close bp control add bb decrease hr, close monitoring on tele HTN - cont losartan, add metoprolol, bp and hr control DYSLIPIDEMIA - statin BPH flomax DEPRESSION venlafaxine dvt prophylasis - scd dispo - plan for necessary inpatient endovascular repair of aneurysm due to high risk of rupture, when arranged w surgery Progress Note: Quality VTE Deep Vein Thrombosis/Pulmonary Embolism Present on Admission: No
[2018-10-16] MEDS: Sod Chloride 0.9% Inj 1,000 ML IV.CONT SCH ×3 (03:08→11:00)
[2018-10-16 07:36] LABS: Baso % (Auto) 0.5 % (0.0-2.0); Eos # (Auto) 0.2 th/mm3 (0.0-0.4); Eos % (Auto) 2.1 % (0.0-4.0); Hematocrit 38.5 % (39.0-51.0); Lymph # (Auto) 1.9 th/mm3 (1.0-4.8); Lymph % (Auto) 24.1 % (9.0-44.0); Mean Corpuscular HGB Conc 33.7 % (32.0-36.0); Mean Corpuscular Hemoglobin 31.4 pg (27.0-34.0); Mean Corpuscular Volume 93.2 fL (80.0-100.0); Mean Platelet Volume 8.6 fL (7.0-11.0); Mono # (Auto) 0.6 th/mm3 (0.0-0.9); Mono % (Auto) 7.9 % (0.0-8.0); Neut # (Auto) 5.2 th/mm3 (1.8-7.7); Neut % (Auto) 65.4 % (16.0-70.0); Platelet Count 174 th/mm3 (150-450); Red Blood Count 4.13 mil/mm3 (4.50-5.90); White Blood Count 7.9 th/mm3 (4.0-11.0)
[2018-10-16] MEDS: Venlafaxine XR 75 MG Capsule PO SCH (08:17)
[2018-10-16] MEDS: Finasteride 5 MG Tablet PO SCH (08:17)
[2018-10-16] MEDS: Metoprolol Tartrate 50 MG Tablet PO SCH ×2 (08:18→21:40)
--- NOTE | 2018-10-16 11:52 | P.PNVS ---
Subjective Subjective/Hospital Course: 73-year-old male with lower GI bleed most likely diverticular in nature. CT of abdomen and pelvis reveals abdominal aortic aneurysm which has grown since the last exam few years ago At this point patient has a 5.2 cm saccular abdominal aortic aneurysm and infrarenal aorta. Saccular aneurysms are notorious for rupture and have usually a fairly thin wall. Therefore this patient needs to be transferred to [facility], be worked up for GI bleed and depending on those findings either undergo endovascular abdominal aortic aneurysm repair at this admission or in the near future. It should be noted that patient will need to be heparinized for endovascular stenting so unless the bleeding is controlled we can do that. On the other hand I would be hard pressed to wait too long on this aneurysm because risk of ruptured here is fairly high considering the morphology of this lesion. Full consult to follow Thanks Earl 10/13/2018 Patient cleared from vascular point and needs scope, followed by endovascular AAA repair at this admission. Full consult has been dictated Spoke to Dr. Stevenson and we will engage GI URI 10/14/2018 Patient remains hemodynamically stable and hemoglobin is stable so based on that probably the lower GI bleeding has ceased. Agree with GI workup and planned endoscopy. Once all done if bleeding has ceased patient will be scheduled for endovascular abdominal aortic aneurysm repair at this admission. Continue to follow 10/15/2018 Patient lower GI bleeding and saccular abdominal aortic aneurysm I reviewed the results of upper and lower endoscopy and patient indeed has diverticular bleed based on severe diverticulosis of the sigmoid colon The most common cause of rectal bleeding or hemorrhoids and the most common cause of massive rectal bleeding are diverticula in the left colon followed by AVM malformations in the right colon In this particular case diverticular bleed is self-contained and in the next few days should be completely abolished. In this particular situation as noted in my original consult patient needs to be heparinized for the endovascular procedure and this clearly increases the risk of repeated hemorrhage, but on the other hand this is a rapidly progressing saccular aneurysm which is associated with a high risk of rupture. Therefore risks benefit ratio has to be assessed and while I am aware of increased risk of hemorrhage I am very reluctant to discharge the patient with rapidly expanding aneurysm. This is clearly one of those clinical decisions the takes an account experience, knowledge and requires mature clinical judgment. Based on the above we plan to do endovascular abdominal aortic aneurysm repair at this admission probably around middle of the week, barring any surprises with bleeding 10/16/2018 Patient doing well at this time Discussed with commercial loan officer. Lower GI bleeding due to diverticular disease as previously suspected and Dr. Williamson placed a Ligaclip which clearly controlled the bleeding. All things equal with stable hemoglobin plan to take patient to endovascular suite on Tuesday for endovascular abdominal aortic aneurysm repair and stenting Objective Vital Signs / I&O: Vital Signs 10/15/18 16:00 10/15/18 20:00 10/16/18 00:00 Temperature 96.6 F L 98.2 F 98.6 F Pulse Rate 70 64 83 Respiratory Rate 14 20 18 Blood Pressure 142/87 H 149/87 H 132/89 Pulse Oximetry 98 97 96 10/16/18 03:45 10/16/18 04:00 10/16/18 07:30 Temperature 98.1 F 98.5 F Pulse Rate 65 62 64 Respiratory Rate 18 20 Blood Pressure 131/84 119/78 Pulse Oximetry 96 95 10/16/18 08:00 10/16/18 08:12 Temperature Pulse Rate 78 Respiratory Rate Blood Pressure Pulse Oximetry 95 Intake & Output 10/15/18 10/16/18 10/16/18 18:59 06:59 18:59 Intake Total 1000 / 1000 1100 / 1100 1000 / 1000 Balance 1000 / 1000 1100 / 1100 1000 / 1000 Weight 103.8 kg Intake: IV 1000 / 1000 1100 / 1100 1000 / 1000 Protonix Inj 80 MG In NS Inj 100 / 100 100 ML @ 10 mls/hr IV.CONT Q10H PIOTR Rx#:[id number] NS Inj 1,000 ML @ 125 mls/hr IV 1000 / 1000 1000 / 1000 1000 / 1000 .CONT .Q8H PIOTR Rx#:[id number] Other: # Voids 2 1 # Urine Diapers 2 Date of Last Bowel Movement 10/14/18 10/14/18 Laboratory Results - last 24 hr 10/16/18 06:50 WBC 7.9 RBC 4.13 L Hgb 13.0 Hct 38.5 L MCV 93.2 MCH 31.4 MCHC 33.7 RDW 14.0 Plt Count 174 MPV 8.6 Neut % (Auto) 65.4 Lymph % (Auto) 24.1 [place] % (Auto) 7.9 Eos % (Auto) 2.1 Baso % (Auto) 0.5 Neut # (Auto) 5.2 Lymph # (Auto) 1.9 [place] # (Auto) 0.6 Eos # (Auto) 0.2 Baso # (Auto) 0.0 WBC Differential . Differential Comment Auto diff final
--- NOTE | 2018-10-16 16:24 | P.PNIM ---
Subjective Interval history: Patient reports he is feeling okay today. He denies abdominal pain, nausea or vomiting. No bowel movement or bloody stools. Physical Exam Vital signs: Last Vital Signs Temp 98.1 F 10/16/18 15:00 Pulse 68 10/16/18 15:00 Resp 20 10/16/18 15:00 BP 133/82 10/16/18 15:00 Pulse Ox 98 10/16/18 15:00 Intake & Output 10/14/18 10/15/18 10/16/18 10/17/18 06:59 06:59 06:59 06:59 Intake Total 3600 / 3600 1700 / 1700 2100 / 2100 1000 / 1000 Balance 3600 / 3600 1700 / 1700 2100 / 2100 1000 / 1000 Weight 101 kg 103.8 kg Narrative: GENERAL: This is a well-nourished, well-developed patient, in no apparent distress. CARDIOVASCULAR: Normal rate and regular rhythm without murmurs, gallops, or rubs. RESPIRATORY: Good respiratory efforts. Breath sounds equal and clear to auscultation bilaterally. GASTROINTESTINAL: Abdomen soft, non-tender, non-distended. Normal active bowel sounds MUSCULOSKELETAL: Extremities without cyanosis, or edema. NEURO: Alert & Oriented x4 to person, place, time, situation. Moves all ext x4 PSYCH: Appropriate mood and affect. Results Labs CBC & Chem 7: 10/16/18 06:50 10/12/18 06:00 Assessment and Plan Plan 73-year-old male with: ACUTE RED BLOOD PER RECTUM/ LGIB - due to diverticular bleed - hg mild drop 15- 11, remains hemodynamically stable, cont ppi, -egd done w DUOENDITIS, SCHATZKIs RING, s/p bx fu w GI for egd 3 mo, avoid nsaids, continue ppi -colonoscopy done -SEVERE SIGMOID, and DESCENDING colon DIVERTICULOSIS w fresh blood s/p clip. No further evidence of bleeding. - cont benefiber 2 tsp daily and fu 3 mo colonoscopy recommended. -if rebleeds will need bleeding scan and +/- arteriogram/embolization AAA- saccular infrarenal with interval expansion 5.o x 4.1 cm, w very high risk of rupture, vascular following, plan for endovascular repair and stenting on Tuesday per vascular surgery. - cont close bp control add bb decrease hr, close monitoring on tele HTN - cont losartan, metoprolol, bp and hr control DYSLIPIDEMIA - statin BPH flomax DEPRESSION venlafaxine dvt prophylasis - scd dispo - plan for necessary inpatient endovascular repair of aneurysm and stenting on Tuesday. Progress Note: Quality VTE Deep Vein Thrombosis/Pulmonary Embolism Present on Admission: No
[2018-10-17] MEDS: Venlafaxine XR 75 MG Capsule PO SCH (08:00)
[2018-10-17] MEDS: Finasteride 5 MG Tablet PO SCH (08:01)
[2018-10-17] MEDS: Metoprolol Tartrate 50 MG Tablet PO SCH ×2 (08:01→22:12)
--- NOTE | 2018-10-17 11:50 | P.PNIM ---
Subjective Interval history: Patient reports he is feeling well today. No new issues. Scheduled for AAA repair tomorrow. Physical Exam Vital signs: Last Vital Signs Temp 97.2 F L 10/17/18 08:00 Pulse 64 10/17/18 09:44 Resp 20 10/17/18 08:00 BP 147/79 H 10/17/18 08:00 Pulse Ox 96 10/17/18 10:25 Intake & Output 10/15/18 10/16/18 10/17/18 10/18/18 06:59 06:59 06:59 06:59 Intake Total 1700 / 1700 2100 / 2100 1000 / 1000 Balance 1700 / 1700 2100 / 2100 1000 / 1000 Weight 103.8 kg 103.8 kg Narrative: GENERAL: This is a well-nourished, well-developed patient, in no apparent distress. CARDIOVASCULAR: Normal rate and regular rhythm without murmurs, gallops, or rubs. RESPIRATORY: Good respiratory efforts. Breath sounds equal and clear to auscultation bilaterally. GASTROINTESTINAL: Abdomen soft, non-tender, non-distended. Normal active bowel sounds MUSCULOSKELETAL: Extremities without cyanosis, or edema. NEURO: Alert & Oriented x4 to person, place, time, situation. Moves all ext x4 PSYCH: Appropriate mood and affect. Results Labs CBC & Chem 7: 10/16/18 06:50 10/12/18 06:00 Assessment and Plan Plan 73-year-old male with: ACUTE RED BLOOD PER RECTUM/ LGIB - due to diverticular bleed - hg mild drop 15- 11, remains hemodynamically stable, cont ppi, -egd done w DUOENDITIS, SCHATZKIs RING, s/p bx fu w GI for egd 3 mo, avoid nsaids, continue ppi -colonoscopy done -SEVERE SIGMOID, and DESCENDING colon DIVERTICULOSIS w fresh blood s/p clip. No further evidence of bleeding. - cont benefiber 2 tsp daily and fu 3 mo colonoscopy recommended. -if rebleeds will need bleeding scan and +/- arteriogram/embolization AAA- saccular infrarenal with interval expansion 5.o x 4.1 cm, w very high risk of rupture, vascular following, plan for endovascular repair and stenting tomorrow per vascular surgery. - cont close bp control HTN - cont losartan, metoprolol, bp and hr control DYSLIPIDEMIA - statin BPH flomax DEPRESSION venlafaxine dvt prophylasis - scd dispo - plan for necessary inpatient endovascular repair of aneurysm and stenting tomorrow. Progress Note: Quality VTE Deep Vein Thrombosis/Pulmonary Embolism Present on Admission: No
--- NOTE | 2018-10-17 16:09 | P.PNVS ---
Subjective Subjective/Hospital Course: 73-year-old male with lower GI bleed most likely diverticular in nature. CT of abdomen and pelvis reveals abdominal aortic aneurysm which has grown since the last exam few years ago At this point patient has a 5.2 cm saccular abdominal aortic aneurysm and infrarenal aorta. Saccular aneurysms are notorious for rupture and have usually a fairly thin wall. Therefore this patient needs to be transferred to [facility], be worked up for GI bleed and depending on those findings either undergo endovascular abdominal aortic aneurysm repair at this admission or in the near future. It should be noted that patient will need to be heparinized for endovascular stenting so unless the bleeding is controlled we can do that. On the other hand I would be hard pressed to wait too long on this aneurysm because risk of ruptured here is fairly high considering the morphology of this lesion. Full consult to follow Thanks Earl 10/13/2018 Patient cleared from vascular point and needs scope, followed by endovascular AAA repair at this admission. Full consult has been dictated Spoke to Dr. Stevenson and we will engage GI URI 10/14/2018 Patient remains hemodynamically stable and hemoglobin is stable so based on that probably the lower GI bleeding has ceased. Agree with GI workup and planned endoscopy. Once all done if bleeding has ceased patient will be scheduled for endovascular abdominal aortic aneurysm repair at this admission. Continue to follow 10/15/2018 Patient lower GI bleeding and saccular abdominal aortic aneurysm I reviewed the results of upper and lower endoscopy and patient indeed has diverticular bleed based on severe diverticulosis of the sigmoid colon The most common cause of rectal bleeding or hemorrhoids and the most common cause of massive rectal bleeding are diverticula in the left colon followed by AVM malformations in the right colon In this particular case diverticular bleed is self-contained and in the next few days should be completely abolished. In this particular situation as noted in my original consult patient needs to be heparinized for the endovascular procedure and this clearly increases the risk of repeated hemorrhage, but on the other hand this is a rapidly progressing saccular aneurysm which is associated with a high risk of rupture. Therefore risks benefit ratio has to be assessed and while I am aware of increased risk of hemorrhage I am very reluctant to discharge the patient with rapidly expanding aneurysm. This is clearly one of those clinical decisions the takes an account experience, knowledge and requires mature clinical judgment. Based on the above we plan to do endovascular abdominal aortic aneurysm repair at this admission probably around middle of the week, barring any surprises with bleeding 10/16/2018 Patient doing well at this time Discussed with coffee break attendant. Lower GI bleeding due to diverticular disease as previously suspected and Dr. Williamson placed a Ligaclip which clearly controlled the bleeding. All things equal with stable hemoglobin plan to take patient to endovascular suite on Tuesday for endovascular abdominal aortic aneurysm repair and stenting 10/17/2018 Patient doing very well Abdomen is soft active bowel sounds. Bleeding is completely stopped and hemoglobin is stable matter fact it is rising. I discussed with patient at length the need for abdominal aortic aneurysm stenting and patient is scheduled for tomorrow for the same in the endovascular suite as a team procedure (as always), between interventional radiology and vascular surgery Objective Vital Signs / I&O: Vital Signs 10/16/18 20:00 10/16/18 20:01 10/17/18 00:00 Temperature 97.7 F 98 F Pulse Rate 70 71 70 Respiratory Rate 18 18 Blood Pressure 138/71 124/69 Pulse Oximetry 97 96 10/17/18 00:09 10/17/18 03:52 10/17/18 04:00 Temperature 97.9 F Pulse Rate 61 68 67 Respiratory Rate 18 Blood Pressure 121/67 Pulse Oximetry 96 10/17/18 06:27 10/17/18 08:00 10/17/18 09:44 Temperature 97.2 F L Pulse Rate 68 74 64 Respiratory Rate 20 Blood Pressure 147/79 H Pulse Oximetry 98 10/17/18 09:45 10/17/18 10:25 10/17/18 12:00 Temperature 97.9 F Pulse Rate 73 Respiratory Rate 20 Blood Pressure 108/66 Pulse Oximetry 98 96 96 10/17/18 12:28 10/17/18 15:51 Temperature 98.0 F Pulse Rate 63 63 Respiratory Rate 20 Blood Pressure 132/74 Pulse Oximetry 96 Intake & Output 10/16/18 10/17/18 10/17/18 18:59 06:59 18:59 Intake Total 1000 / 1000 Balance 1000 / 1000 Weight 103.8 kg Intake: IV 1000 / 1000 NS Inj 1,000 ML @ 125 mls/hr IV 1000 / 1000 .CONT .Q8H PIOTR Rx#:[id number] Other: # Voids 4 3
[2018-10-18] MEDS ORDERED: Chlorhexidine Gluconate 2% 1 Pack (2 Cloths) TOPICAL ONE (06:53)
[2018-10-18] MEDS ORDERED: Sodium Chlor 0.9% Inj 500 ML IV.SIG ONE (07:00)
[2018-10-18] MEDS: Venlafaxine XR 75 MG Capsule PO SCH (09:13)
[2018-10-18] MEDS: Finasteride 5 MG Tablet PO SCH (09:16)
[2018-10-18] MEDS: Metoprolol Tartrate 50 MG Tablet PO SCH ×2 (09:16→20:36)
[2018-10-18] MEDS ORDERED: fentaNYL Citrate Inj 250 MCG/5 ML Ampul ONE (11:57)
[2018-10-18] MEDS ORDERED: Lidocaine PF 1% Inj 30 ML Vial ONE (12:18)
[2018-10-18] MEDS ORDERED: ceFAZolin 1 GM Premix Inj 1 GM/50 ML PIGGYBACK IV.SIG ONE (12:38)
[2018-10-18] MEDS ORDERED: Heparin 10,000 UNITS/10 ML Vial (for IV use) ONE (12:38)
--- NOTE | 2018-10-18 13:04 | P.PNIM ---
Subjective Interval history: Patient reports he is feeling okay today. A little anxious about upcoming surgery. He denies pain. Physical Exam Vital signs: Vital Signs 10/17/18 15:51 10/17/18 20:00 10/17/18 20:21 Temperature 98.0 F 98.1 F Pulse Rate 63 73 70 Respiratory Rate 20 20 Blood Pressure 132/74 125/79 Pulse Oximetry 96 95 10/18/18 00:58 10/18/18 04:47 10/18/18 08:00 Temperature 98.0 F 98.2 F 97.6 F Pulse Rate 66 67 65 Respiratory Rate 20 20 16 Blood Pressure 129/69 132/84 146/81 H Pulse Oximetry 96 96 95 Intake & Output 10/17/18 10/18/18 10/18/18 18:59 06:59 18:59 Weight 101.3 kg Other: # Voids 4 3 Date of Last Bowel Movement 10/16/18 Narrative: GENERAL: This is a well-nourished, well-developed patient, in no apparent distress. CARDIOVASCULAR: Normal rate and regular rhythm without murmurs, gallops, or rubs. RESPIRATORY: Good respiratory efforts. Breath sounds equal and clear to auscultation bilaterally. GASTROINTESTINAL: Abdomen soft, non-tender, non-distended. Normal active bowel sounds MUSCULOSKELETAL: Extremities without cyanosis, or edema. NEURO: Alert & Oriented x4 to person, place, time, situation. Moves all ext x4 PSYCH: Appropriate mood and affect. Results Labs CBC & Chem 7: 10/16/18 06:50 10/12/18 06:00 Assessment and Plan Plan 73-year-old male admitted with acute GI bleeding. Patient found to have diverticular bleed status post clips. Bleeding has resolved but he was found to have an expanding AAA. Patient will have AAA repair. ACUTE RED BLOOD PER RECTUM/ LGIB - due to diverticular bleed - hg mild drop 15- 11, remains hemodynamically stable, cont ppi, -egd done w DUOENDITIS, SCHATZKIs RING, s/p bx fu w GI for egd 3 mo, avoid nsaids, continue ppi -colonoscopy done -SEVERE SIGMOID, and DESCENDING colon DIVERTICULOSIS w fresh blood s/p clip. No further evidence of bleeding. - cont benefiber 2 tsp daily and fu 3 mo colonoscopy recommended. -if rebleeds will need bleeding scan and +/- arteriogram/embolization AAA- saccular infrarenal with interval expansion 5.o x 4.1 cm, w very high risk of rupture, vascular following, plan for endovascular repair and stenting today per vascular surgery. - cont close bp control HTN - cont losartan, metoprolol, bp and hr control DYSLIPIDEMIA - statin BPH flomax DEPRESSION venlafaxine dvt prophylasis - scd dispo - plan for necessary inpatient endovascular repair of aneurysm and stenting today. Progress Note: Quality VTE Deep Vein Thrombosis/Pulmonary Embolism Present on Admission: No
[2018-10-18] MEDS ORDERED: Sod Chloride 0.9% Inj 1,000 ML IV.CONT SCH (14:30)
--- NOTE | 2018-10-18 16:57 | IR ---
EXAM DATE: 10/18/2018 2:33 PM EST AGE/SEX: 73 years / Male INDICATIONS: Patient with 5.2cm saccular abdominal aortic aneurysm in need of endovascular repair. CLINICAL DATA: This is the patient's initial encounter. Patient reports that signs and symptoms have been present for 4 - 6 days and indicates a pain score of 0/10. MEDICAL/SURGICAL HISTORY: Hypercholesterolemia. Hypertension. BPH, GI Bleed Endoscopy, [place] copy COMPARISON: No prior exams available for comparison. FLUORO TIME (min): 23.4 IMAGE SERIES: 6 RADIATION DOSE: 3002mGy CAK ; Medical complexity ACCESS SITE: Bilateral femoral artery CONTRAST (cc): 70cc Visipaque (iodixanol) Prophylactic antibiotics were administered with appropriate pre-procedure timing. Vancomycin within 2 hrs of procedure, Ancef (or alternative) within 1 hr of procedure. Anesthesia and pain control was p rovided by the Anesthesia department. DEVICE(S): Abdominal aorta artery abdominal stent graft Endurant 20F [id number] Abdominal aorta artery abdominal stent graft Endurant 16F [id number] Bilateral common femoral artery Perclose 6F Abdominal aorta artery Reliant Stent graft balloon catheter Bilateral common femoral artery Syvek pad . . PROCEDURE : The procedures were performed as co-primary surgeon with Dr. Hobson 1. Ultrasound-guidance for bilateral common femoral arterial access. 2. Nonselective bilateral aortic catheterization. 3. Fluoroscopically guided endovascular aortic aneurysm repair. 4. Radiologic supervision and interpretation for Endovascular AAA repair. 5. Bilateral common femoral arteriography prior to closure device placement. 6. Bilateral common femoral arteriotomy closure. 7. The patient was placed supine on the angiography table. General endotracheal anesthesia was administ ered by department of anesthesia representatives. The groins were prepped in sterile fashion. Full sterile technique was used, including cap, mask, sterile gloves and gown and a large sterile sheet. Hand hygiene and 2% chlorhexidine and/or betadine/alcohol prep was utilized per protocol for cutaneou s antisepsis. Sterile gel and sterile probe cover were utilized for ultrasound guidance. Angiograph of both femoral arteries was performed to evaluate for closure device placement. 7 Cameroonian sheaths were placed. Stiff 0.035 inch guidewires were introduced and positioned in the descending t horacic aorta and their position marked on the procedure table. A marking Omni flush catheter was introduced from the right and positioned in the upper abdominal aor ta. From the left, the prescribed main body component was inserted and manipulated without difficult y up to the level the renal arteries. Magnification subtraction arteriography was then performed to luis eduardo the position of the lowest renal artery. The trunk device was deployed without difficulty. The Omni Flush catheter was then brought down into the distal abdominal aorta and with aid of an angl ed Glidewire the catheter was directed through the contralateral gate region. Retrograde sheath imelda riography was performed to luis eduardo the gate and select a contralateral iliac component. The prescribed length contralateral iliac device was selected, inserted and deployed without difficulty. The trunk, gate connections and iliac limbs were then dilated utilizing the prescribed angioplasty ba lloons. Completion arteriography was performed revealing excellent angiographic result with wide pat ency of the trunk and iliac limbs. Excellent preservation of flow in the renal arteries and hypogast shakila was noted. The groin sheaths were removed and arteriotomy closed with the prescribed sutures and hemostasis was augmented with brief manual compression utilizing hemostasis patches. The patient tolerated the proc edure well and was taken to the recovery area in stable condition. CONCLUSION: Uncomplicated endograft placement for abdominal aortic aneurysm. Electronically signed by: Qamar Rosenberg MD Board Certified Radiologist 10/18/2018 4:56 PM EST
[2018-10-19 05:35] LABS: Hematocrit 37.3 % (39.0-51.0); Hemoglobin 12.3 gm/dL (13.0-17.0); Mean Corpuscular HGB Conc 33.1 % (32.0-36.0); Mean Corpuscular Hemoglobin 31.2 pg (27.0-34.0); Mean Corpuscular Volume 94.3 fL (80.0-100.0); Mean Platelet Volume 9.2 fL (7.0-11.0); Platelet Count 193 th/mm3 (150-450); Red Blood Count 3.95 mil/mm3 (4.50-5.90); Red Cell Distribution Width 14.4 % (11.6-17.2); White Blood Count 13.7 th/mm3 (4.0-11.0)
[2018-10-19 06:01] LABS: Calcium 8.3 mg/dL (8.5-10.1); Carbon Dioxide 24.4 meq/L (21.0-32.0); Potassium 4.1 meq/L (3.5-5.1)
[2018-10-19] MEDS: Metoprolol Tartrate 50 MG Tablet PO SCH ×2 (08:03→22:35)
[2018-10-19] MEDS: Finasteride 5 MG Tablet PO SCH (08:03)
[2018-10-19] MEDS: Venlafaxine XR 75 MG Capsule PO SCH (08:03)
--- NOTE | 2018-10-19 09:00 | P.PNVS ---
Subjective Subjective/Hospital Course: 73-year-old male with lower GI bleed most likely diverticular in nature. CT of abdomen and pelvis reveals abdominal aortic aneurysm which has grown since the last exam few years ago At this point patient has a 5.2 cm saccular abdominal aortic aneurysm and infrarenal aorta. Saccular aneurysms are notorious for rupture and have usually a fairly thin wall. Therefore this patient needs to be transferred to [facility], be worked up for GI bleed and depending on those findings either undergo endovascular abdominal aortic aneurysm repair at this admission or in the near future. It should be noted that patient will need to be heparinized for endovascular stenting so unless the bleeding is controlled we can do that. On the other hand I would be hard pressed to wait too long on this aneurysm because risk of ruptured here is fairly high considering the morphology of this lesion. Full consult to follow Thanks Earl 10/13/2018 Patient cleared from vascular point and needs scope, followed by endovascular AAA repair at this admission. Full consult has been dictated Spoke to Dr. Stevenson and we will engage GI URI 10/14/2018 Patient remains hemodynamically stable and hemoglobin is stable so based on that probably the lower GI bleeding has ceased. Agree with GI workup and planned endoscopy. Once all done if bleeding has ceased patient will be scheduled for endovascular abdominal aortic aneurysm repair at this admission. Continue to follow 10/15/2018 Patient lower GI bleeding and saccular abdominal aortic aneurysm I reviewed the results of upper and lower endoscopy and patient indeed has diverticular bleed based on severe diverticulosis of the sigmoid colon The most common cause of rectal bleeding or hemorrhoids and the most common cause of massive rectal bleeding are diverticula in the left colon followed by AVM malformations in the right colon In this particular case diverticular bleed is self-contained and in the next few days should be completely abolished. In this particular situation as noted in my original consult patient needs to be heparinized for the endovascular procedure and this clearly increases the risk of repeated hemorrhage, but on the other hand this is a rapidly progressing saccular aneurysm which is associated with a high risk of rupture. Therefore risks benefit ratio has to be assessed and while I am aware of increased risk of hemorrhage I am very reluctant to discharge the patient with rapidly expanding aneurysm. This is clearly one of those clinical decisions the takes an account experience, knowledge and requires mature clinical judgment. Based on the above we plan to do endovascular abdominal aortic aneurysm repair at this admission probably around middle of the week, barring any surprises with bleeding 10/16/2018 Patient doing well at this time Discussed with county agent. Lower GI bleeding due to diverticular disease as previously suspected and Dr. Williamson placed a Ligaclip which clearly controlled the bleeding. All things equal with stable hemoglobin plan to take patient to endovascular suite on Tuesday for endovascular abdominal aortic aneurysm repair and stenting 10/17/2018 Patient doing very well Abdomen is soft active bowel sounds. Bleeding is completely stopped and hemoglobin is stable matter fact it is rising. I discussed with patient at length the need for abdominal aortic aneurysm stenting and patient is scheduled for tomorrow for the same in the endovascular suite as a team procedure (as always), between interventional radiology and vascular surgery 10/19/2018 Patient status post abdominal aortic aneurysm repair by endovascular Medtronics graft placement and extension to both iliac arteries which are also ectatic and aneurysmal. Patient is doing well Abdomen is soft with active bowel sounds Femoral pulses and strong Patient has excellent distal pulses in posterior tibial and dorsalis pedis vessels feet are warm Plan Out of bed Transfer to floor From my point patient can transfer to rehab any time for short period of reconditioning Follow-up with my office in about 6 months with CTA of abdomen and pelvis Objective Vital Signs / I&O: Vital Signs 10/18/18 13:58 10/18/18 14:00 10/18/18 14:15 Temperature 97.4 F L 97.4 F L 97.4 F L Pulse Rate 66 65 60 Respiratory Rate 16 16 16 Blood Pressure 127/73 121/73 125/74 Pulse Oximetry 93 L 94 L 91 L 10/18/18 14:30 10/18/18 14:45 10/18/18 15:00 Temperature 97.4 F L 97.4 F L 97.4 F L Pulse Rate 53 L 60 51 L Respiratory Rate 16 16 16 Blood Pressure 119/71 112/59 L 121/64 Pulse Oximetry 93 L 95 95 10/18/18 15:20 10/18/18 15:31 10/18/18 15:34 Temperature Pulse Rate 53 L Respiratory Rate 15 Blood Pressure 124/76 Pulse Oximetry 95 10/18/18 16:00 10/18/18 16:53 10/18/18 17:00 Temperature Pulse Rate 60 57 L 61 Respiratory Rate 18 19 22 Blood Pressure 143/76 H Pulse Oximetry 95 95 93 L 10/18/18 17:01 10/18/18 17:07 10/18/18 18:00 Temperature Pulse Rate 55 L 57 L 56 L Respiratory Rate 23 19 14 Blood Pressure 133/79 133/78 Pulse Oximetry 95 94 L 94 L 10/18/18 18:07 10/18/18 19:00 10/18/18 19:07 Temperature Pulse Rate 68 68 65 Respiratory Rate 22 24 24 Blood Pressure 109/72 132/76 Pulse Oximetry 96 94 L 93 L 10/18/18 20:00 10/18/18 20:07 10/18/18 21:00 Temperature 97.9 F Pulse Rate 66 57 L 57 L Respiratory Rate 27 H 21 20 Blood Pressure 115/63 Pulse Oximetry 95 95 95 10/18/18 21:07 10/18/18 22:00 10/18/18 22:07 Temperature Pulse Rate 57 L 61 61 Respiratory Rate 24 19 19 Blood Pressure 118/67 119/68 Pulse Oximetry 95 95 95 10/18/18 23:00 10/18/18 23:07 10/19/18 00:00 Temperature 98.4 F Pulse Rate 58 L 62 58 L Respiratory Rate 19 19 24 Blood Pressure 105/64 Pulse Oximetry 95 96 94 L 10/19/18 00:07 10/19/18 01:00 10/19/18 01:07 Temperature Pulse Rate 55 L 59 L 59 L Respiratory Rate 9 L 20 20 Blood Pressure 94/53 L 94/60 L Pulse Oximetry 97 95 95 10/19/18 02:00 10/19/18 02:07 10/19/18 03:00 Temperature Pulse Rate 59 L 57 L 60 Respiratory Rate 19 6 L 12 Blood Pressure 110/62 Pulse Oximetry 94 L 95 95 10/19/18 03:07 10/19/18 04:00 10/19/18 04:07 Temperature Pulse Rate 60 64 69 Respiratory Rate 5 L 20 28 H Blood Pressure 108/65 102/61 Pulse Oximetry 95 94 L 96 10/19/18 05:00 10/19/18 05:07 10/19/18 06:00 Temperature Pulse Rate 65 66 62 Respiratory Rate 20 18 17 Blood Pressure 102/58 L Pulse Oximetry 95 95 95 10/19/18 06:07 10/19/18 07:00 10/19/18 07:07 Temperature 97.8 F Pulse Rate 61 68 62 Respiratory Rate 22 98 H 107 H Blood Pressure 96/53 L 118/61 Pulse Oximetry 96 95 94 L 10/19/18 07:51 10/19/18 07:56 Temperature Pulse Rate 63 Respiratory Rate Blood Pressure Pulse Oximetry 93 L Intake & Output 10/18/18 10/19/18 10/19/18 18:59 06:59 18:59 Intake Total 290 / 290 420 / 420 Output Total 950 / 950 1100 / 1100 Balance -660 / -660 -680 / -680 Weight 102 kg Intake: IV 50 / 50 Ancef 1 GM Premix Inj 1 gm In 50 / 50 50 ml @ 0 mls/hr IV.SIG .STK- MED ONE Rx#:[id number] Oral 240 / 240 420 / 420 Output: Urine Amount (Catheter) 950 / 950 1100 / 1100 Indwelling Urethral Catheter 950 / 950 1100 / 1100 Other: Date of Last Bowel Movement 10/16/18 10/16/18 10/16/18 # Bowel Movements 0 Laboratory Results - last 24 hr 10/17/18 10/19/18 10/19/18 17:02 05:00 05:00 WBC 13.7 H RBC 3.95 L Hgb 12.3 L Hct 37.3 L MCV 94.3 MCH 31.2 MCHC 33.1 RDW 14.4 Plt Count 193 MPV 9.2 Sodium 137 Potassium 4.1 Chloride 105 Carbon Dioxide 24.4 Anion Gap 8 BUN 16 Creatinine 1.30 Estimated GFR 54 L Random Glucose 125 H Calcium 8.3 L MTS Gel Crossmatch See Detail Impressions Aortography 10/18/18 00:00 CONCLUSION: Uncomplicated endograft placement for abdominal aortic aneurysm.
--- NOTE | 2018-10-19 09:54 | P.PNIM ---
Subjective Interval history: Patient reports he is feeling well today. He denies any pain. No nausea or vomiting. Physical Exam Vital signs: Vital Signs 10/18/18 13:58 10/18/18 14:00 10/18/18 14:15 Temperature 97.4 F L 97.4 F L 97.4 F L Pulse Rate 66 65 60 Respiratory Rate 16 16 16 Blood Pressure 127/73 121/73 125/74 Pulse Oximetry 93 L 94 L 91 L 10/18/18 14:30 10/18/18 14:45 10/18/18 15:00 Temperature 97.4 F L 97.4 F L 97.4 F L Pulse Rate 53 L 60 51 L Respiratory Rate 16 16 16 Blood Pressure 119/71 112/59 L 121/64 Pulse Oximetry 93 L 95 95 10/18/18 15:20 10/18/18 15:31 10/18/18 15:34 Temperature Pulse Rate 53 L Respiratory Rate 15 Blood Pressure 124/76 Pulse Oximetry 95 10/18/18 16:00 10/18/18 16:53 10/18/18 17:00 Temperature Pulse Rate 60 57 L 61 Respiratory Rate 18 19 22 Blood Pressure 143/76 H Pulse Oximetry 95 95 93 L 10/18/18 17:01 10/18/18 17:07 10/18/18 18:00 Temperature Pulse Rate 55 L 57 L 56 L Respiratory Rate 23 19 14 Blood Pressure 133/79 133/78 Pulse Oximetry 95 94 L 94 L 10/18/18 18:07 10/18/18 19:00 10/18/18 19:07 Temperature Pulse Rate 68 68 65 Respiratory Rate 22 24 24 Blood Pressure 109/72 132/76 Pulse Oximetry 96 94 L 93 L 10/18/18 20:00 10/18/18 20:07 10/18/18 21:00 Temperature 97.9 F Pulse Rate 66 57 L 57 L Respiratory Rate 27 H 21 20 Blood Pressure 115/63 Pulse Oximetry 95 95 95 10/18/18 21:07 10/18/18 22:00 10/18/18 22:07 Temperature Pulse Rate 57 L 61 61 Respiratory Rate 24 19 19 Blood Pressure 118/67 119/68 Pulse Oximetry 95 95 95 10/18/18 23:00 10/18/18 23:07 10/19/18 00:00 Temperature 98.4 F Pulse Rate 58 L 62 58 L Respiratory Rate 19 19 24 Blood Pressure 105/64 Pulse Oximetry 95 96 94 L 10/19/18 00:07 10/19/18 01:00 10/19/18 01:07 Temperature Pulse Rate 55 L 59 L 59 L Respiratory Rate 9 L 20 20 Blood Pressure 94/53 L 94/60 L Pulse Oximetry 97 95 95 10/19/18 02:00 10/19/18 02:07 10/19/18 03:00 Temperature Pulse Rate 59 L 57 L 60 Respiratory Rate 19 6 L 12 Blood Pressure 110/62 Pulse Oximetry 94 L 95 95 10/19/18 03:07 10/19/18 04:00 10/19/18 04:07 Temperature Pulse Rate 60 64 69 Respiratory Rate 5 L 20 28 H Blood Pressure 108/65 102/61 Pulse Oximetry 95 94 L 96 10/19/18 05:00 10/19/18 05:07 10/19/18 06:00 Temperature Pulse Rate 65 66 62 Respiratory Rate 20 18 17 Blood Pressure 102/58 L Pulse Oximetry 95 95 95 10/19/18 06:07 10/19/18 07:00 10/19/18 07:07 Temperature 97.8 F Pulse Rate 61 68 62 Respiratory Rate 22 98 H 107 H Blood Pressure 96/53 L 118/61 Pulse Oximetry 96 95 94 L 10/19/18 07:51 10/19/18 07:56 Temperature Pulse Rate 63 Respiratory Rate Blood Pressure Pulse Oximetry 93 L Intake & Output 10/18/18 10/19/18 10/19/18 18:59 06:59 18:59 Intake Total 290 / 290 420 / 420 Output Total 950 / 950 1100 / 1100 Balance -660 / -660 -680 / -680 Weight 102 kg Intake: IV 50 / 50 Ancef 1 GM Premix Inj 1 gm In 50 / 50 50 ml @ 0 mls/hr IV.SIG .STK- MED ONE Rx#:[id number] Oral 240 / 240 420 / 420 Output: Urine Amount (Catheter) 950 / 950 1100 / 1100 Indwelling Urethral Catheter 950 / 950 1100 / 1100 Other: Date of Last Bowel Movement 10/16/18 10/16/18 10/16/18 # Bowel Movements 0 Narrative: GENERAL: This is a well-nourished, well-developed patient, in no apparent distress. CARDIOVASCULAR: Normal rate and regular rhythm without murmurs, gallops, or rubs. RESPIRATORY: Good respiratory efforts. Breath sounds equal and clear to auscultation bilaterally. GASTROINTESTINAL: Abdomen soft, non-tender, non-distended. Normal active bowel sounds MUSCULOSKELETAL: Extremities without cyanosis, or edema. NEURO: Alert & Oriented x4 to person, place, time, situation. Moves all ext x4 PSYCH: Appropriate mood and affect. Urinary Catheter Management Indwelling Urethral Catheter: Cath placed during this visit: no Results Labs CBC & Chem 7: 10/19/18 05:00 10/19/18 05:00 Imaging Imaging: Impressions Aortography 10/18/18 00:00 CONCLUSION: Uncomplicated endograft placement for abdominal aortic aneurysm. Assessment and Plan Plan 73-year-old male admitted with acute GI bleeding. Patient found to have diverticular bleed status post clips. Bleeding has resolved but he was found to have an expanding AAA. Patient will have AAA repair. ACUTE RED BLOOD PER RECTUM/ LGIB - due to diverticular bleed - hg mild drop 15- 11, remains hemodynamically stable, cont ppi, -egd done w DUOENDITIS, SCHATZKIs RING, s/p bx fu w GI for egd 3 mo, avoid nsaids, continue ppi -colonoscopy done -SEVERE SIGMOID, and DESCENDING colon DIVERTICULOSIS w fresh blood s/p clip. No further evidence of bleeding. - cont benefiber 2 tsp daily and fu 3 mo colonoscopy recommended. -if rebleeds will need bleeding scan and +/- arteriogram/embolization AAA- saccular infrarenal with interval expansion 5.o x 4.1 cm, w very high risk of rupture -Patient underwent endovascular repair with vascular surgery. - BP control HTN - cont losartan, metoprolol, bp and hr control DYSLIPIDEMIA - statin BPH flomax DEPRESSION venlafaxine dvt prophylasis - scd dispo -transfer to medical floor today. Physical therapy. Anticipate discharge to SNF versus home tomorrow. Progress Note: Quality VTE Deep Vein Thrombosis/Pulmonary Embolism Present on Admission: No
--- NOTE | 2018-10-19 11:24 | MP ---
cc: Klarissa Hobson MD DATE OF OPERATION: 10/18/2018 PREOPERATIVE DIAGNOSIS: Abdominal aortic infrarenal aneurysm. POSTOPERATIVE DIAGNOSIS: Abdominal aortic infrarenal aneurysm. OPERATIVE PROCEDURE: Infrarenal abdominal aortic aneurysm repair with endovascular graft, Endurant Medtronic. VASCULAR SURGEON: Dr. Hobson. INTERVENTIONAL RADIOLOGIST AND COSURGEON: Dr. Rosenberg. ANESTHESIA: General. ESTIMATED BLOOD LOSS: 200 mL. DESCRIPTION OF PROCEDURE: The patient was prepped and draped in usual fashion. The ultrasound guidance is used to access the common femoral arteries bilaterally and then a Glidewire was inserted on both sides up and the 6 sheath was placed over each Glidewire. The Omni Flush catheter with gold markings is introduced to the right groin and arteriogram is obtained. The position of the renal arteries is determined. The left Glidewire is now exchanged into an Amplatz wire; and over this, the main body was introduced and then released and deployed without difficulty. The additional limb is placed on the right side; and over the Amplatz wire, the 14 and 6 inch sheaths were placed into the vessels. The final angiogram is obtained, which shows excellent flow through the graft and essentially obliteration of the aneurysm. The Glidewire is now reinserted and then Perclose device was closed.. Dressing applied. At the end of procedure, the patient has excellent distal pulses and groins are clean and dry. MATERIALS USED: Abdominal aorta main graft Endurant 20-Croatian 36 x 20 mm, 16-Croatian 16 x 28 mm, Perclose devices, and 7000 units of heparin. Klarissa Hobson MD SJ/rs , 10:57 AM , 11:05 AM
[2018-10-19 20:41] VITALS: RESP 20
--- NOTE | 2018-10-20 09:01 | P.PN ---
Subjective Interval history: awake and alert no complains of groin pain voiding no reported melena or hematochezia + flatus Physical Exam Vital signs: Vital Signs 10/19/18 09:00 10/19/18 09:07 10/19/18 10:00 Temperature Pulse Rate 57 L 59 L 65 Respiratory Rate 112 H 102 H 111 H Blood Pressure 123/92 H Pulse Oximetry 95 94 L 96 10/19/18 10:02 10/19/18 10:03 10/19/18 10:07 Temperature Pulse Rate 66 80 61 Respiratory Rate 127 H 122 H 108 H Blood Pressure 99/55 L 109/57 L 111/61 Pulse Oximetry 96 95 95 10/19/18 11:00 10/19/18 11:13 10/19/18 12:00 Temperature Pulse Rate 61 75 60 Respiratory Rate 106 H 79 H 108 H Blood Pressure 109/73 Pulse Oximetry 96 94 L 95 10/19/18 12:07 10/19/18 13:00 10/19/18 13:07 Temperature Pulse Rate 61 61 79 Respiratory Rate 107 H 129 H 123 H Blood Pressure 115/58 L 93/55 L Pulse Oximetry 94 L 93 L 95 10/19/18 14:00 10/19/18 14:28 10/19/18 15:00 Temperature 99.0 F Pulse Rate 71 74 69 Respiratory Rate 114 H 70 H 106 H Blood Pressure 121/62 Pulse Oximetry 95 94 L 94 L 10/19/18 15:07 10/19/18 16:00 10/19/18 16:07 Temperature Pulse Rate 68 66 66 Respiratory Rate 98 H 106 H 119 H Blood Pressure 109/62 111/62 Pulse Oximetry 93 L 93 L 93 L 10/19/18 17:46 10/19/18 20:00 10/20/18 00:00 Temperature 98.5 F 98.3 F Pulse Rate 72 70 72 Respiratory Rate 20 20 Blood Pressure 127/70 137/80 Pulse Oximetry 96 96 Intake & Output 10/19/18 10/20/18 10/20/18 18:59 06:59 18:59 Intake Total 480 / 480 580 / 580 Output Total 425 / 425 Balance 55 / 55 580 / 580 Weight 102 kg Intake: Oral 480 / 480 580 / 580 Output: Urine 425 / 425 Other: # Voids 3 2 Date of Last Bowel Movement 10/16/18 # Bowel Movements 0 Narrative: GENERAL: alert, orientedn x 3 , in no apparent distress. CARDIOVASCULAR: Normal rate and regular rhythm RESPIRATORY: Good respiratory efforts. Breath sounds equal and clear to auscultation bilaterally. GASTROINTESTINAL: Abdomen soft, non-tender, non-distended. Normal active bowel sounds groin_ dressing in place, good femoral pulses, no hematoma, some ecchymoses MUSCULOSKELETAL: Extremities without cyanosis, or edema. NEURO: Alert & Oriented x4 to person, place, time, situation. Moves all ext x4. gait steady PSYCH: Appropriate mood and affect. - Urinary Catheter Management Indwelling Urethral Catheter Cath placed during this visit: no Results - Labs CBC & Chem 7: 10/19/18 05:00 10/19/18 05:00 Assessment and Plan - Assessment (1) Melena Code(s): K92.1 - Melena Status: Acute (2) GI bleed Code(s): K92.2 - Gastrointestinal hemorrhage, unspecified Status: Acute - Plan 73-year-old male admitted with acute GI bleeding. Patient found to have diverticular bleed status post clips. Bleeding has resolved but he was found to have an expanding AAA. Patient will have AAA repair. ACUTE RED BLOOD PER RECTUM/ LGIB - due to diverticular bleed - hg mild drop 15- 11, remains hemodynamically stable, cont ppi, -egd done w DUOENDITIS, SCHATZKIs RING, s/p bx fu w GI for egd 3 mo, avoid nsaids, continue ppi -colonoscopy done -SEVERE SIGMOID, and DESCENDING colon DIVERTICULOSIS w fresh blood s/p clip. No further evidence of bleeding. - cont benefiber 2 tsp daily and fu 3 mo colonoscopy recommended. -if rebleeds will need bleeding scan and +/- arteriogram/embolization AAA- saccular infrarenal with interval expansion 5.o x 4.1 cm, w very high risk of rupture -Patient underwent endovascular repair with vascular surgery. - BP control HTN - cont losartan, metoprolol, bp and hr control DYSLIPIDEMIA - statin BPH flomax DEPRESSION venlafaxine dvt prophylasis - scd DC home today FF up with PCP Dr Marei Durant in 3-5 days OP ff up with GI in 3 months OP ff up with Dr. Elliott in 6 months Progress Note: Quality VTE Deep Vein Thrombosis/Pulmonary Embolism Present on Admission: No
--- NOTE | 2018-10-20 09:16 | P.DS ---
Date of admission: 10/16/18 17:35 Primary care physician: Abelardo Darden MD Anticipated date of discharge: 10/20/18 Brief History from admission: 73-year-old male with known history of hypertension, hyperlipidemia, history of GI bleed, benign prostatic hypertrophy who presented to the hospital for evaluation of bloody stool. Patient states that his normal state of health until yesterday when he had a bowel movement noticed right red blood in his stool. He denies any drops in the toilet or any dark colored stool. He states that he had 4 more episodes throughout the day so he came to the hospital for evaluation. Patient had workup done in the emergency department his hemoglobin was found to be 15.3. Because of his presenting symptoms it was recommended by the ER physician the patient be observed in the hospital for further evaluation and management. Patient indicates that he was in the hospital previously for the same symptoms. Reviewed medical records and patient was in here on 2014 in which he did undergo endoscopy/colonoscopy by Dr. Scott, at that time patient was found to have polyps in the transverse colon as well as diverticulosis. Patient was discharged after that, patient states that he not had any outpatient follow-up since then. Patient denies any other symptoms to include abdominal pain, nausea, vomiting, dark colored stool, fever, chills. Patient update on day of discharge: sinus rhythm tolerating po + flatus no pain complains groin- no induration- ggod pulses,. mild eccymoses DS: Diagnosis - Discharge Diagnosis (1) Melena Status: Acute (2) GI bleed Status: Acute DS: Medications - Discharge Medications Prescriptions: metoprolol tartrate 50 mg PO BID 30 Days #60 tab pantoprazole 40 mg PO DAILY 30 Days #30 tab DS: Summary - Time Spent with Patient Total time spent providing and/or coordinating discharge services: - Quality: VTE Deep Vein Thrombosis/Pulmonary Embolism Present on Admission: No Exam Vital signs: Vital Signs 10/19/18 10:00 10/19/18 10:02 10/19/18 10:03 Temperature Pulse Rate 65 66 80 Respiratory Rate 111 H 127 H 122 H Blood Pressure 99/55 L 109/57 L Pulse Oximetry 96 96 95 10/19/18 10:07 10/19/18 11:00 10/19/18 11:13 Temperature Pulse Rate 61 61 75 Respiratory Rate 108 H 106 H 79 H Blood Pressure 111/61 109/73 Pulse Oximetry 95 96 94 L 10/19/18 12:00 10/19/18 12:07 10/19/18 13:00 Temperature Pulse Rate 60 61 61 Respiratory Rate 108 H 107 H 129 H Blood Pressure 115/58 L Pulse Oximetry 95 94 L 93 L 10/19/18 13:07 10/19/18 14:00 10/19/18 14:28 Temperature 99.0 F Pulse Rate 79 71 74 Respiratory Rate 123 H 114 H 70 H Blood Pressure 93/55 L 121/62 Pulse Oximetry 95 95 94 L 10/19/18 15:00 10/19/18 15:07 10/19/18 16:00 Temperature Pulse Rate 69 68 66 Respiratory Rate 106 H 98 H 106 H Blood Pressure 109/62 Pulse Oximetry 94 L 93 L 93 L 10/19/18 16:07 10/19/18 17:46 10/19/18 20:00 Temperature 98.5 F Pulse Rate 66 72 70 Respiratory Rate 119 H 20 Blood Pressure 111/62 127/70 Pulse Oximetry 93 L 96 10/20/18 00:00 Temperature 98.3 F Pulse Rate 72 Respiratory Rate 20 Blood Pressure 137/80 Pulse Oximetry 96 Intake & Output 10/19/18 10/20/18 10/20/18 18:59 06:59 18:59 Intake Total 480 / 480 580 / 580 Output Total 425 / 425 Balance 55 / 55 580 / 580 Weight 102 kg Intake: Oral 480 / 480 580 / 580 Output: Urine 425 / 425 Other: # Voids 3 2 Date of Last Bowel Movement 10/16/18 # Bowel Movements 0 Results Completed studies during hospitalization: Pending at discharge 10/14/18 07:34 Surgical [PTH] Routine - Impressions ITS Impressions Abdomen/Pelvis CT 10/12/18 06:16 CONCLUSION: 1. No acute finding is identified to explain the clinical symptoms. 2. 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 The aneurysms have increased in size, as above. 3. Nonacute findings include hepatic steatosis and stable small hiatal hernia. Aortography 10/18/18 00:00 CONCLUSION: Uncomplicated endograft placement for abdominal aortic aneurysm. Discharge Plan - Discharge Disposition Patient Disposition: Discharge Home - Discharge Condition Condition: Stable - Discharge Order Discharge Orders: Discharge Order (Routine); Ordered 10/20/18 Ordered By: Melecio Gallo - Physicians Team Primary Care Provider: Abelardo Darden V Attending Provider: Melecio Gallo
[2018-10-20] MEDS: Venlafaxine XR 75 MG Capsule PO SCH (09:17)
[2018-10-20] MEDS: Metoprolol Tartrate 50 MG Tablet PO SCH (09:17)
[2018-10-20] MEDS: Finasteride 5 MG Tablet PO SCH (09:17)
[2018-10-20 10:00] VITALS: BP 137/71; PULSE 81; TEMP 98; O2SAT 93
== END 2018-10-20 10:19 | disposition home or self-care (01) | DRG 268 ==
LOC: PHEDA 05:16 → PHED 05:16 → PH3 08:53 → N05 10-13 05:06 → N03 10-18 15:26 → N07 10-19 19:19
PROVIDERS: ADMIT Internal Medicine; ATTEND Internal Medicine
PROC: PANENDO (2018-10-14 15:10)
PROC: COLONOS (2018-10-14 15:10)
DX: D62 Acute posthemorrhagic anemia; K76.0 Fatty (change of) liver, not elsewhere classified; K44.9 Diaphragmatic hernia without obstruction or gangrene; F32.9 Major depressive disorder, single episode, unspecified; N40.0 Benign prostatic hyperplasia without lower urinary tract symptoms; F17.210 Nicotine dependence, cigarettes, uncomplicated; Z79.899 Other long term (current) drug therapy; E78.5 Hyperlipidemia, unspecified; K92.1 Melena; I71.4 Abdominal aortic aneurysm, without rupture; K64.8 Other hemorrhoids; Z86.010 Personal history of colon polyps; K64.4 Residual hemorrhoidal skin tags; E78.00 Pure hypercholesterolemia, unspecified; Z79.82 Long term (current) use of aspirin; I10 Essential (primary) hypertension; K29.80 Duodenitis without bleeding; K57.31 Diverticulosis of large intestine without perforation or abscess with bleeding
CPT/HCPCS: 34705; 34713; 74177; 76937; 80048; 80053; 82140; 83735; 85014; 85018; 85025; 85027; 85610; 85730; 86850; 86900; 86901; 86923; 88305; 88312; 90774; 93005; 96361; 96365; 96366; 96374; 97161; 99285; A4646; C1725; C1751; C1760; C1769; C1887; C1893; C1894; C8952; C9113; G0378; J0690; J1644; J3010; J7030; J7040; Q9949; Q9967